=== PATIENT | female | born 1965 | race Caucasian/White ===

== ENCOUNTER → 2017-05-19 | Outpatient (CLI) | payer OTHER ==
[2017-05-19 09:16] LABS: Basophils % (A) 1 %; Eosinophils # (A) 0.1 k/uL (0-0.7); Eosinophils % (A) 2 %; HCT 40.4 % (34.0-46.0); HGB 13.5 gm/dL (11.4-16.0); Lymphocytes # (A) 2.8 k/uL (1.0-4.8); Lymphocytes % (A) 49 %; MCH 30.6 pg (25.0-35.0); MCHC 33.5 g/dL (31.0-37.0); MCV 91.4 fL (80.0-100.0); Mean Platelet Volume 7.9; Monocytes # (A) 0.3 k/uL (0-1.0); Monocytes % (A) 5 %; Neutrophils # (A) 2.3 k/uL (1.3-7.7); Neutrophils % (A) 41 %; Platelet Count 218 k/uL (150-450); RBC 4.42 m/uL (3.80-5.40); WBC 5.7 k/uL (3.8-10.6)
[2017-05-19 10:21] LABS: Appearance,Urine Turbid (Clear); Bacteria,Urine Many /hpf; Bilirubin,Urine Negative (Negative); Blood,Urine Small (Negative); Color,Urine Yellow; Glucose,Urine (UA) Negative (Negative); Hyaline Casts,Urine 88 /lpf (0-2); Ketones,Urine Negative (Negative); Leukocyte Esterase,Urine Large (Negative); Mucus,Urine Occasional /hpf; Nitrite,Urine Positive (Negative); PH, Urine 5.5 (5.0-8.0); Protein,Urine 1+ (Negative); RBC,Urine 24 /hpf (0-5); Specific Gravity,Urine 1.017 (1.001-1.035); Squamous Epithelial Cell,Urine 23 /hpf (0-4); Urobilinogen,Urine <2.0 mg/dL (<2.0); WBC,Urine >182 /hpf (0-5)
[2017-05-19 10:47] LABS: ALT 17 U/L (9-52); AST 18 U/L (14-36); Albumin 4.6 g/dL (3.5-5.0); Alkaline Phosphatase 66 U/L (38-126); Anion Gap 12 mmol/L; Blood Urea Nitrogen 21 mg/dL (7-17); C Reactive Protein <5.0 mg/L (<10.0); Calcium 10.5 mg/dL (8.4-10.2); Carbon Dioxide 27 mmol/L (22-30); Chloride 100 mmol/L (98-107); Creatine Kinase 55 U/L (30-135); Glucose 87 mg/dL (74-99); LDH 431 U/L (313-618); Phosphorus 4.3 mg/dL (2.5-4.5); Potassium 4.4 mmol/L (3.5-5.1); Sodium 139 mmol/L (137-145); Total Bilirubin 0.6 mg/dL (0.2-1.3); Total Protein 7.9 g/dL (6.3-8.2); Uric Acid 5.2 mg/dL (3.7-7.4)
[2017-05-19 11:54] LABS: Erythrocyte Sedimentation Rate 8 mm/hr (0-20)
[2017-05-19 15:11] LABS: Protein, Total 7.2 g/dL (6.2-8.2); Rheumatoid Factor 6 IU/mL (0-15); Streptolysin O Ab(ASO) 190 IU/mL (0-200)
[2017-05-19 15:25] LABS: Vitamin D 25 Hydroxy 62.3 ng/mL (30.0-100.0)
[2017-05-19 15:29] LABS: Parathyroid Hormone Intact 69.1 pg/mL (14.0-72.0)
[2017-05-19 16:54] LABS: Cyclic Citrullinated Pep IgG NEGATIVE (NEGATIVE)
[2017-05-19 17:25] LABS: Hemoglobin A1C 3.8 % (4.0-6.0)
[2017-05-20 04:50] LABS: Angiotensin-1 Converting Enz. 31 U/L (8-52)
[2017-05-20 09:44] LABS: ANA Pattern See Footnote
[2017-05-20 10:02] LABS: Vitamin D, 1, 25-Dihydroxy 71 pg/mL (20 - 79)
[2017-05-20 12:38] LABS: HLA B27 NEGATIVE
[2017-05-20 17:46] LABS: Hepatits C Virus RNA Not detected (Not detected); Hepatits C Virus RNA, Quant <12 IU/mL (<12); LOG HCV IU/mL <1.08 (<1.08)
[2017-05-21 05:23] LABS: Vitamin B1 41 ug/L (38-122)
[2017-05-21 09:18] LABS: Lyme IgG/IgM 0.1 Index
[2017-05-21 11:25] LABS: Vitamin B6 14 ug/L (5-50)
[2017-05-21 11:49] LABS: Albumin 4.64 g/dL (3.80-4.90); Gamma Globulin 0.97 g/dL (0.70-1.50)
== END | disposition home or self-care (01) ==
LOC: LABWHC1 08:08
PROVIDERS: ATTEND Physical Medicine & Rehabilitation
DX: M50.322 Other cervical disc degeneration at C5-C6 level (principal); M54.5 Low back pain
CPT/HCPCS: 36415; 80053; 81001; 82164; 82306; 82310; 82550; 82553; 82607; 82652; 83036; 83516; 83520; 83615; 83970; 84100; 84165; 84207; 84425; 84439; 84443; 84550; 85025; 85652; 86038; 86039; 86060; 86140; 86200; 86235; 86431; 86618; 86812; 87522

== ENCOUNTER → 2018-03-15 | Outpatient (CLI) | payer OTHER ==
--- NOTE | 2018-03-15 09:34 | US ---
EXAMINATION TYPE: US thyroid st tissue head/neck DATE OF EXAM: 03/15/2018 COMPARISON: NONE CLINICAL HISTORY: R22.1 Localized Swelling, Mass Neck. Patient has bilateral masses supraclavicular. At patients left palpable is a 2.8 x 0.8 x 1.4cm mass. Probable lipoma. At patients right palpable is a 1.9 x 0.5 x 1.4cm mass. Probable lipoma. IMPRESSION: 1. Palpable abnormalities appear to correspond to lipomatous ultrasound findings. MRI could be perfor med if additional evaluation would be of benefit.
[2018-03-15 10:03] LABS: Basophils % (A) 1 %; Eosinophils # (A) 0.1 k/uL (0-0.7); Eosinophils % (A) 2 %; HCT 37.9 % (34.0-46.0); HGB 12.9 gm/dL (11.4-16.0); Lymphocytes # (A) 1.8 k/uL (1.0-4.8); Lymphocytes % (A) 41 %; MCH 30.6 pg (25.0-35.0); MCHC 34.2 g/dL (31.0-37.0); MCV 89.7 fL (80.0-100.0); Monocytes # (A) 0.2 k/uL (0-1.0); Monocytes % (A) 5 %; Neutrophils # (A) 2.2 k/uL (1.3-7.7); Neutrophils % (A) 49 %; Platelet Count 182 k/uL (150-450); RBC 4.22 m/uL (3.80-5.40); RDW 13.1 % (11.5-15.5); WBC 4.4 k/uL (3.8-10.6)
[2018-03-15 11:04] LABS: ALT 32 U/L (9-52); AST 22 U/L (14-36); Albumin 4.2 g/dL (3.5-5.0); Alkaline Phosphatase 74 U/L (38-126); Anion Gap 8 mmol/L; Blood Urea Nitrogen 18 mg/dL (7-17); Carbon Dioxide 26 mmol/L (22-30); Chloride 108 mmol/L (98-107); Glucose 97 mg/dL (74-99); Potassium 5.4 mmol/L (3.5-5.1); Sodium 142 mmol/L (137-145); Total Bilirubin 0.4 mg/dL (0.2-1.3); Total Protein 7.4 g/dL (6.3-8.2)
== END | disposition home or self-care (01) ==
LOC: RADUSWWP 08:29
PROVIDERS: ATTEND Family Medicine
DX: R22.1 Localized swelling, mass and lump, neck (principal)
CPT/HCPCS: 36415; 76536; 80053; 85025

== ENCOUNTER 2018-03-18 14:27 | Inpatient (IN) | payer OTHER ==
[2018-03-18] MEDS ORDERED: SODIUM CHLORIDE 0.9% 1,000 ML IV STA (15:17)
--- NOTE | 2018-03-18 15:51 | XR ---
EXAMINATION TYPE: XR chest 2V DATE OF EXAM: 03/18/2018 COMPARISON: NONE HISTORY: Chest pain TECHNIQUE: Frontal and lateral views of the chest are obtained. FINDINGS: There is no focal air space opacity. No evidence for pneumothorax. No pleural effusion. The cardiac silhouette size is within normal limits. The osseous structures are grossly intact. IMPRESSION: 1. No acute cardiopulmonary process.
[2018-03-18 15:57] LABS: Basophils % (A) 0 %; Eosinophils # (A) 0.1 k/uL (0-0.7); Eosinophils % (A) 2 %; HCT 35.7 % (34.0-46.0); HGB 12.5 gm/dL (11.4-16.0); Lymphocytes # (A) 1.2 k/uL (1.0-4.8); Lymphocytes % (A) 17 %; MCH 30.9 pg (25.0-35.0); MCHC 34.9 g/dL (31.0-37.0); MCV 88.4 fL (80.0-100.0); Mean Platelet Volume 7.9; Monocytes # (A) 0.3 k/uL (0-1.0); Monocytes % (A) 5 %; Neutrophils # (A) 5.1 k/uL (1.3-7.7); Neutrophils % (A) 74 %; Platelet Count 185 k/uL (150-450); RBC 4.04 m/uL (3.80-5.40); RDW 13.2 % (11.5-15.5); WBC 6.9 k/uL (3.8-10.6)
[2018-03-18 16:07] LABS: ALT 31 U/L (9-52); AST 23 U/L (14-36); Albumin 4.1 g/dL (3.5-5.0); Alkaline Phosphatase 64 U/L (38-126); Anion Gap 8 mmol/L; Blood Urea Nitrogen 18 mg/dL (7-17); Calcium 9.9 mg/dL (8.4-10.2); Carbon Dioxide 24 mmol/L (22-30); Chloride 108 mmol/L (98-107); Glucose 97 mg/dL (74-99); Magnesium 1.9 mg/dL (1.6-2.3); Potassium 3.9 mmol/L (3.5-5.1); Sodium 140 mmol/L (137-145); Total Bilirubin 0.5 mg/dL (0.2-1.3); Total Protein 7.1 g/dL (6.3-8.2)
[2018-03-18 16:11] LABS: Creatine Kinase 49 U/L (30-135)
[2018-03-18 16:14] LABS: D-Dimer 0.27 mg/L FEU (<0.60); INR 1.3 (<1.2); Partial Thromboplastin Time 29.3 sec (22.0-30.0); Prothrombin Time 12.5 sec (9.0-12.0)
[2018-03-18 16:24] LABS: Creatine Kinase MB <0.2 ng/mL (0.0-2.4); Troponin I <0.012 ng/mL (0.000-0.034)
[2018-03-18 16:27] LABS: Amorphous Sediment,Urine Moderate /hpf; Appearance,Urine Turbid (Clear); Bacteria,Urine Occasional /hpf; Bilirubin,Urine Negative (Negative); Blood,Urine Negative (Negative); Color,Urine Yellow; Glucose,Urine (UA) Negative (Negative); Ketones,Urine Negative (Negative); Leukocyte Esterase,Urine Large (Negative); Mucus,Urine Rare /hpf; Nitrite,Urine Positive (Negative); PH, Urine 7.5 (5.0-8.0); Protein,Urine Negative (Negative); Specific Gravity,Urine 1.016 (1.001-1.035); Squamous Epithelial Cell,Urine 4 /hpf (0-4); WBC,Urine 30 /hpf (0-5)
--- NOTE | 2018-03-18 16:51 | ED ---
General Adult HPI - General Chief complaint: Recheck/Abnormal Lab/Rx Stated complaint: Abnormal labs Time Seen by Provider: 03/18/18 15:07 Source: patient, RN notes reviewed, old records reviewed Mode of arrival: ambulatory Limitations: no limitations - History of Present Illness Initial comments: Patient's age 3-year-old female who presents emergency department for general malaise and fatigue. Patient reports that she had some outpatient lab studies done as well as an ultrasound of her thyroid when she fell she had a normal lymph nodes in her neck. Patient reports that they called her today due to elevated potassium level. Patient states she's been feeling she's had some increased palpitations. Patient does have a heart history of palpitations. She is on metoprolol. Patient states she does not see a model maker apprentice at this time her primary care has been managing this. Patient reports that she has been around her son who is also had pneumonia. She complains of occasional cough and fatigue and runny nose. Patient also complains of some lower abdominal pain and discomfort, painful urination. - Related Data Home Medications Medication Instructions Recorded Confirmed ALPRAZolam [Xanax] 0.5 mg PO DAILY 03/18/18 03/18/18 Cyanocobalamin [Vitamin B-12 1,000 mcg SQ QMONTH 03/18/18 03/18/18 Injection] DULoxetine HCL [Cymbalta] 30 mg PO BID 03/18/18 03/18/18 Ergocalciferol (Vitamin D2) 50,000 unit PO FR 03/18/18 03/18/18 [Drisdol] Fluocinonide 0.05% [Lidex 0.05% 15 applic TOPICAL DAILY 03/18/18 03/18/18 cream] Ibuprofen [Motrin] 600 mg PO TID 03/18/18 03/18/18 Lidocaine 5% Patch [Lidoderm] 1 patch TOPICAL Q12HR PRN 03/18/18 03/18/18 Metoprolol Tartrate 12.5 mg PO BID 03/18/18 03/18/18 Allergies Allergy/AdvReac Type Severity Reaction Status Date / Time fluoxetine Allergy Swelling Verified 03/18/18 15:42 pregabalin [From Lyrica] Allergy Swelling Verified 03/18/18 15:42 Review of Systems ROS Statement: Those systems with pertinent positive or pertinent negative responses have been documented in the HPI. ROS Other: All systems not noted in ROS Statement are negative. Past Medical History Additional Past Medical History / Comment(s): arrythymia, ear sensitivity, DDD neck and back History of Any Multi-Drug Resistant Organisms: None Reported Past Surgical History: Breast Surgery, Section Additional Past Surgical History / Comment(s): open myomectomy, cosmetic surgery , breast reduction Past Psychological History: PTSD Smoking Status: Former smoker Past Alcohol Use History: None Reported Past Drug Use History: None Reported General Exam - General Exam Comments Initial Comments: 33-year-old female. Alert and oriented. Patient appears in no acute distress. Limitations: no limitations General appearance: alert, in no apparent distress Head exam: Present: atraumatic, normocephalic, normal inspection Eye exam: Present: normal appearance, PERRL, EOMI. Absent: scleral icterus, conjunctival injection, periorbital swelling ENT exam: Present: normal exam, mucous membranes moist Neck exam: Present: normal inspection. Absent: tenderness, meningismus, lymphadenopathy Respiratory exam: Present: normal lung sounds bilaterally. Absent: respiratory distress, wheezes, rales, rhonchi, stridor Cardiovascular Exam: Present: regular rate, normal rhythm, normal heart sounds. Absent: systolic murmur, diastolic murmur, rubs, gallop, clicks GI/Abdominal exam: Present: soft, normal bowel sounds. Absent: distended, tenderness, guarding, rebound, rigid Extremities exam: Present: normal inspection, full ROM, normal capillary refill. Absent: tenderness, pedal edema, joint swelling, calf tenderness Back exam: Present: normal inspection Neurological exam: Present: alert, oriented X3, CN II-XII intact Psychiatric exam: Present: normal affect, normal mood Skin exam: Present: warm, dry, intact, normal color. Absent: rash Course Vital Signs 03/18/18 14:39 Temperature 98.1 F Pulse Rate 98 Respiratory 18 Rate Blood Pressure 158/81 O2 Sat by Pulse 98 Oximetry EKG Findings - EKG Comments: EKG Findings:: EKG shows sinus rhythm with frequent PVCs and pattern of bigeminy. Prolonged QT. Dr. Goodman shannon 7 bpm. Paranasal is 134 ms. QRS ration 76 most seconds. QT QTc is 370/469 ms. Medical Decision Making - Medical Decision Making Patient is a 53-year-old female presents emergency department today with concerns for elevated potassium level from outpatient lab work. Since and general malaise and fatigue. She also reports she's been having increased palpitations. Patient reports she's had a history of palpitations. Her EKG shows significant frequent PVCs with pattern of bigeminy. She has no cardiac murmurs. She also complains of lower abdominal pain and cramping. She does have a positive UTI. Patient's blood work was otherwise unremarkable. Urine culture will be obtained. Started on Rocephin. At this time Patient case discussed with Dr. Cervantes. We have no previous EKGs to confirm this pattern of bigeminy. With concern the Patient increased palpitations like to get the Patient for further evaluation and observation. - Lab Data Result diagrams: 03/18/18 15:33 03/18/18 15:33 Lab Results 03/18/18 03/18/18 03/18/18 Range/Units 15:33 15:33 15:33 WBC 6.9 (3.8-10.6) k/uL RBC 4.04 (3.80-5.40) m/uL Hgb 12.5 (11.4-16.0) gm/dL Hct 35.7 (34.0-46.0) % MCV 88.4 (80.0-100.0) fL MCH 30.9 (25.0-35.0) pg MCHC 34.9 (31.0-37.0) g/dL RDW 13.2 (11.5-15.5) % Plt Count 185 (150-450) k/uL Neutrophils % 74 % Lymphocytes % 17 % Monocytes % 5 % Eosinophils % 2 % Basophils % 0 % Neutrophils # 5.1 (1.3-7.7) k/uL Lymphocytes # 1.2 (1.0-4.8) k/uL Monocytes # 0.3 (0-1.0) k/uL Eosinophils # 0.1 (0-0.7) k/uL Basophils # 0.0 (0-0.2) k/uL PT (9.0-12.0) sec INR (<1.2) APTT (22.0-30.0) sec D-Dimer (<0.60) mg/L FEU Sodium 140 (137-145) mmol/L Potassium 3.9 (3.5-5.1) mmol/L Chloride 108 H (98-107) mmol/L Carbon Dioxide 24 (22-30) mmol/L Anion Gap 8 mmol/L BUN 18 H (7-17) mg/dL Creatinine 0.77 (0.52-1.04) mg/dL Est GFR (CKD-EPI)AfAm >90 (>60 ml/min/1.73 sqM) Est GFR (CKD-EPI)NonAf 88 (>60 ml/min/1.73 sqM) Glucose 97 (74-99) mg/dL Calcium 9.9 (8.4-10.2) mg/dL Magnesium 1.9 (1.6-2.3) mg/dL Total Bilirubin 0.5 (0.2-1.3) mg/dL AST 23 (14-36) U/L ALT 31 (9-52) U/L Alkaline Phosphatase 64 (38-126) U/L Total Creatine Kinase 49 (30-135) U/L CK-MB (CK-2) <0.2 (0.0-2.4) ng/mL CK-MB (CK-2) Rel Index Troponin I <0.012 (0.000-0.034) ng/mL NT-Pro-B Natriuret Pep pg/mL Total Protein 7.1 (6.3-8.2) g/dL Albumin 4.1 (3.5-5.0) g/dL Urine Color Urine Appearance (Clear) Urine pH (5.0-8.0) Ur Specific [place] (1.001-1.035) Urine Protein (Negative) Urine Glucose (UA) (Negative) Urine Ketones (Negative) Urine Blood (Negative) Urine Nitrite (Negative) Urine Bilirubin (Negative) Urine Urobilinogen (<2.0) mg/dL Ur Leukocyte Esterase (Negative) Urine WBC (0-5) /hpf Ur Squamous Epith Cells (0-4) /hpf Amorphous Sediment (None) /hpf Urine Bacteria (None) /hpf Urine Mucus (None) /hpf 03/18/18 03/18/18 03/18/18 Range/Units 15:33 15:33 16:00 WBC (3.8-10.6) k/uL RBC (3.80-5.40) m/uL Hgb (11.4-16.0) gm/dL Hct (34.0-46.0) % MCV (80.0-100.0) fL MCH (25.0-35.0) pg MCHC (31.0-37.0) g/dL RDW (11.5-15.5) % Plt Count (150-450) k/uL Neutrophils % % Lymphocytes % % Monocytes % % Eosinophils % % Basophils % % Neutrophils # (1.3-7.7) k/uL Lymphocytes # (1.0-4.8) k/uL Monocytes # (0-1.0) k/uL Eosinophils # (0-0.7) k/uL Basophils # (0-0.2) k/uL PT 12.5 H (9.0-12.0) sec INR 1.3 H (<1.2) APTT 29.3 (22.0-30.0) sec D-Dimer 0.27 (<0.60) mg/L FEU Sodium (137-145) mmol/L Potassium (3.5-5.1) mmol/L Chloride (98-107) mmol/L Carbon Dioxide (22-30) mmol/L Anion Gap mmol/L BUN (7-17) mg/dL Creatinine (0.52-1.04) mg/dL Est GFR (CKD-EPI)AfAm (>60 ml/min/1.73 sqM) Est GFR (CKD-EPI)NonAf (>60 ml/min/1.73 sqM) Glucose (74-99) mg/dL Calcium (8.4-10.2) mg/dL Magnesium (1.6-2.3) mg/dL Total Bilirubin (0.2-1.3) mg/dL AST (14-36) U/L ALT (9-52) U/L Alkaline Phosphatase (38-126) U/L Total Creatine Kinase (30-135) U/L CK-MB (CK-2) (0.0-2.4) ng/mL CK-MB (CK-2) Rel Index Troponin I (0.000-0.034) ng/mL NT-Pro-B Natriuret Pep 176 pg/mL Total Protein (6.3-8.2) g/dL Albumin (3.5-5.0) g/dL Urine Color Yellow Urine Appearance Turbid H (Clear) Urine pH 7.5 (5.0-8.0) Ur Specific [place] 1.016 (1.001-1.035) Urine Protein Negative (Negative) Urine Glucose (UA) Negative (Negative) Urine Ketones Negative (Negative) Urine Blood Negative (Negative) Urine Nitrite Positive H (Negative) Urine Bilirubin Negative (Negative) Urine Urobilinogen 2.0 (<2.0) mg/dL Ur Leukocyte Esterase Large H (Negative) Urine WBC 30 H (0-5) /hpf Ur Squamous Epith Cells 4 (0-4) /hpf Amorphous Sediment Moderate H (None) /hpf Urine Bacteria Occasional H (None) /hpf Urine Mucus Rare H (None) /hpf - Radiology Data Radiology results: report reviewed Chest x-rays negative for any acute cardiothoracic process. Disposition Clinical Impression: Bigeminal rhythm, Malaise, Dizziness, UTI (urinary tract infection) Disposition: ADMITTED IP TO THIS HOSP Condition: Stable Is patient prescribed a controlled substance at d/c from ED?: No Referrals: [facility] [Primary Care Provider] - 1-2 days Time of Disposition: 17:12
[2018-03-18] MEDS ORDERED: NALOXONE 0.4 MG/ML 1 ML VIAL IV PRN (17:13)
[2018-03-18] MEDS ORDERED: MORPHINE SULFATE 4 MG/ML SYRINGE IV PRN (17:13)
[2018-03-18] MEDS ORDERED: ACETAMINOPHEN TAB 325 MG TAB PO PRN (17:13)
[2018-03-18] MEDS ORDERED: ONDANSETRON 4 MG/2 ML VIAL IVP PRN (17:13)
[2018-03-18] MEDS ORDERED: IBUPROFEN 400 MG TAB PO PRN (17:13)
[2018-03-18] MEDS ORDERED: LIDOCAINE 5% PATCH TOPICAL PRN (17:15)
[2018-03-18] MEDS ORDERED: ENALAPRILAT 1.25 MG/ML 1 ML VIAL IVP PRN (20:15)
[2018-03-18] MEDS: SODIUM CHLORIDE 0.9% 1,000 ML IV SCH (21:57)
[2018-03-18] MEDS: IBUPROFEN 600 MG TAB PO SCH (22:01)
[2018-03-18] MEDS ORDERED: ALPRAZolam 0.5 MG TAB PO SCH (22:01)
[2018-03-18] MEDS: METOPROLOL TARTRATE 12.5 MG TAB PO SCH (22:09)
[2018-03-18] MEDS: KETOROLAC 30 MG/ML 1 ML VIAL IVP PRN (22:18)
[2018-03-18] MEDS: DULoxetine HCL 30 MG CAPSULE.DR PO SCH (22:18)
[2018-03-19] MEDS: SODIUM CHLORIDE 0.9% 1,000 ML IV SCH (06:01)
[2018-03-19 06:09] VITALS: PULSE 82
[2018-03-19 06:40] LABS: Basophils % (A) 0 %; Eosinophils # (A) 0.1 k/uL (0-0.7); Eosinophils % (A) 3 %; HCT 32.9 % (34.0-46.0); HGB 11.6 gm/dL (11.4-16.0); Lymphocytes # (A) 1.4 k/uL (1.0-4.8); Lymphocytes % (A) 34 %; MCH 31.2 pg (25.0-35.0); MCHC 35.2 g/dL (31.0-37.0); MCV 88.8 fL (80.0-100.0); Mean Platelet Volume 7.7; Monocytes # (A) 0.2 k/uL (0-1.0); Monocytes % (A) 5 %; Neutrophils # (A) 2.4 k/uL (1.3-7.7); Neutrophils % (A) 56 %; Platelet Count 177 k/uL (150-450); RBC 3.71 m/uL (3.80-5.40); RDW 13.1 % (11.5-15.5); WBC 4.2 k/uL (3.8-10.6)
[2018-03-19 07:06] LABS: Anion Gap 6 mmol/L; Blood Urea Nitrogen 14 mg/dL (7-17); Calcium 9.5 mg/dL (8.4-10.2); Carbon Dioxide 24 mmol/L (22-30); Chloride 111 mmol/L (98-107); Glucose 95 mg/dL (74-99); Magnesium 1.9 mg/dL (1.6-2.3); Sodium 141 mmol/L (137-145)
[2018-03-19] MEDS ORDERED: PANTOPRAZOLE 40 MG/10 ML VIAL IV SCH (09:00)
[2018-03-19] MEDS ORDERED: BETAMETHASONE DIPROPIONATE 0.05% CREAM 15 GM TUBE TOPICAL SCH (09:00)
[2018-03-19] MEDS ORDERED: ALPRAZolam 0.5 MG TAB PO SCH ×2 (09:00→21:00)
[2018-03-19] MEDS: IBUPROFEN 600 MG TAB PO SCH ×2 (09:09→12:19)
[2018-03-19] MEDS: METOPROLOL TARTRATE 12.5 MG TAB PO SCH (09:09)
[2018-03-19] MEDS: DULoxetine HCL 30 MG CAPSULE.DR PO SCH ×2 (09:10→13:23)
--- NOTE | 2018-03-19 11:34 | P.CRDCN ---
History of Present Illness History of present illness: This pleasant 53-year-old female past medical history significant for frequent PVCs, dyslipidemia and former nicotine dependence. She also suffers from PTSD, depression and anxiety. She denies history of coronary artery disease, hypertension or diabetes mellitus. She does not follow with a utilization specialist on a regular basis. We've been asked to see her in consultation secondary bigeminy noted on EKG. She states she recently noticed swelling on both sides of her neck in the anterior region. She saw her primary care physician and was sent in for a ultrasound of her neck which she reported to be normal. She also had blood work drawn at that time. She was called by her primary care physician told her that her potassium was elevated and she should present to the hospital immediately for evaluation. Upon arrival an EKG was obtained which revealed sinus mechanism with frequent PVCs bigeminal pattern. No acute ST-T wave abnormalities noted. She states upon arrival to the emergency department she was feeling tightness in her chest as well as difficulty taking in a deep breath and mild dizziness. She denies symptoms of palpitations, nausea, vomiting or diaphoresis. At the time of my exam she is seen resting comfortably in bed in no acute distress. Chest x-ray is negative for acute cardiopulmonary process. Laboratory data reviewed, WBC 4.2, hemoglobin 11.6, platelets 177, d-dimer 0.27, sodium 141, potassium 4.0, magnesium 1.9, creatinine 0.7, cardiac enzymes negative 1, NT proBNP 176, TSH 0.606. Current cardiac medications include Lopressor 12.5 mg twice a day. At the time of my exam: CONSTITUTIONAL: Denies fever. Denies chills. EYES: Denies blurred vision. Denies vision changes. Denies eye pain. EARS, NOSE, MOUTH & THROAT: Denies headache. Denies sore throat. Denies ear pain. CARDIOVASCULAR: Denies chest pain. Denies shortness of breath. Denies orthopnea. Denies PND. Denies palpitations. RESPIRATORY: Denies cough. GASTROINTESTINAL: Denies abdominal pain. Denies diarrhea. Denies constipation. Denies nausea. Denies vomiting. MUSCULOSKELETAL: Denies myalgias. INTEGUMENTARY: Denies pruitis. Denies rash. NEUROLOGIC: Denies numbness. Denies tingling. Denies weakness. PSYCHIATRIC: Denies anxiety. Denies depression. ENDOCRINE: Denies fatigue. Denies weight change. Denies polydipsia. Denies polyurina. GENITOURINARY: Denies burning, hematuria or urgency with micturation. HEMATOLOGIC: Denies history of anemia. Denies bleeding. Blood pressure 122/71 heart rate 82 afebrile maintaining oxygen saturation on room air. GENERAL: This is a 53-year-old female in no apparent distress at the time of my examination. HEENT: Head is atraumatic, normocephalic. Pupils are equal, round. Sclerae anicteric. Conjunctivae are clear. Mucous membranes of the mouth are moist. Neck is supple. There is no jugular venous distention. No carotid bruit is heard. LUNGS: Clear to auscultation no wheezes, rales or rhonchi. No chest wall tenderness is noted on palpation or with deep breathing. HEART: Regular rate and rhythm without murmurs, rubs or gallops. S1 and S2 heard. ABDOMEN: Soft, nontender. Bowel sounds are heard. No organomegaly noted. EXTREMITIES: No evidence of peripheral edema and no calf tenderness noted. VASCULAR: Radial and dorsalis pedis pulses palpated, no evidence of clubbing. NEUROLOGIC: Patient is awake, alert and oriented x3. ASSESSMENT Frequent PVCs Chest pain, atypical. Dyslipidemia Former nicotine dependence PLAN Obtain second troponin to rule out an acute coronary event. TSH has been checked and is normal. Obtain 2-D echocardiogram and Doppler study to assess cardiac structure and function. Increase Lopressor 25 mg twice a day. Telemetry tracings have been reviewed. If an acute event is ruled out she is stable from a cardiac perspective and should be able to be discharged home. Thank you kindly for this consultation. Nurse Practitioner note has been reviewed, I agree with a documented findings and plan of care. Patient was seen and examined. Past Medical History Past Medical History: Hyperlipidemia Additional Past Medical History / Comment(s): Arrythymia, Ear sensitivity, DDD neck and back, Vertigo History of Any Multi-Drug Resistant Organisms: None Reported Past Surgical History: Breast Surgery, Section Additional Past Surgical History / Comment(s): open myomectomy, cosmetic surgery , breast reduction Past Anesthesia/Blood Transfusion Reactions: No Reported Reaction Past Psychological History: Anxiety, Depression, PTSD Smoking Status: Former smoker Past Alcohol Use History: Daily Additional Past Alcohol Use History / Comment(s): 2 glasses of wine a night Past Drug Use History: None Reported Medications and Allergies Home Medications Medication Instructions Recorded Confirmed Type ALPRAZolam [Xanax] 0.5 mg PO DAILY 03/18/18 03/18/18 History Cyanocobalamin [Vitamin B-12 1,000 mcg SQ QMONTH 03/18/18 03/18/18 History Injection] DULoxetine HCL [Cymbalta] 30 mg PO BID 03/18/18 03/18/18 History Ergocalciferol (Vitamin D2) 50,000 unit PO FR 03/18/18 03/18/18 History [Drisdol] Fluocinonide 0.05% [Lidex 0.05% 15 applic TOPICAL DAILY 03/18/18 03/18/18 History cream] Ibuprofen [Motrin] 600 mg PO TID 03/18/18 03/18/18 History Lidocaine 5% Patch [Lidoderm] 1 patch TOPICAL Q12HR PRN 03/18/18 03/18/18 History Metoprolol Tartrate 12.5 mg PO BID 03/18/18 03/18/18 History Allergies Allergy/AdvReac Type Severity Reaction Status Date / Time fluoxetine Allergy Swelling Verified 03/18/18 15:42 pregabalin [From Lyrica] Allergy Swelling Verified 03/18/18 15:42 Physical Exam Vitals: Vital Signs Temp Pulse Pulse Resp BP BP Pulse Ox 03/19/18 04:00 98.2 F 82 17 106/64 95 03/18/18 23:22 86 17 03/18/18 23:16 98.0 F 86 17 122/88 97 03/18/18 21:40 98.1 F 82 18 159/95 97 03/18/18 21:00 96 25 H 144/90 97 03/18/18 20:30 103 H 26 H 136/94 97 03/18/18 20:00 105 H 16 99 03/18/18 19:30 95 24 142/98 98 03/18/18 19:00 94 25 H 147/97 98 03/18/18 18:30 87 19 155/113 99 03/18/18 18:00 92 23 157/102 97 03/18/18 17:30 163/104 03/18/18 17:00 163/104 03/18/18 16:30 163/104 03/18/18 16:00 163/104 03/18/18 15:35 98 03/18/18 14:39 98.1 F 98 18 158/81 98 Intake and Output 03/18/18 03/19/18 03/19/18 22:59 06:59 14:59 Intake Total 1000 Balance 1000 Intake: Intake, IV Titration 600 Amount Sodium Chloride 0.9% 1, 600 000 ml @ 100 mls/hr IV . Q10H [facility] Rx#:[id number] Oral 400 Other: Voiding Method Toilet # Voids 1 Weight 80.1 kg Results 03/19/18 06:13 03/19/18 06:13 Cardiac Enzymes 03/18/18 03/18/18 Range/Units 15:33 15:33 AST 23 (14-36) U/L CK-MB (CK-2) <0.2 (0.0-2.4) ng/mL Troponin I <0.012 (0.000-0.034) ng/mL Coagulation 03/18/18 Range/Units 15:33 PT 12.5 H (9.0-12.0) sec APTT 29.3 (22.0-30.0) sec CBC 03/18/18 03/19/18 Range/Units 15:33 06:13 WBC 6.9 4.2 (3.8-10.6) k/uL RBC 4.04 3.71 L (3.80-5.40) m/uL Hgb 12.5 11.6 (11.4-16.0) gm/dL Hct 35.7 32.9 L (34.0-46.0) % Plt Count 185 177 (150-450) k/uL Comprehensive Metabolic Panel 03/18/18 03/19/18 Range/Units 15:33 06:13 Sodium 140 141 (137-145) mmol/L Potassium 3.9 4.0 (3.5-5.1) mmol/L Chloride 108 H 111 H (98-107) mmol/L Carbon Dioxide 24 24 (22-30) mmol/L BUN 18 H 14 (7-17) mg/dL Creatinine 0.77 0.70 (0.52-1.04) mg/dL Glucose 97 95 (74-99) mg/dL Calcium 9.9 9.5 (8.4-10.2) mg/dL AST 23 (14-36) U/L ALT 31 (9-52) U/L Alkaline Phosphatase 64 (38-126) U/L Total Protein 7.1 (6.3-8.2) g/dL Albumin 4.1 (3.5-5.0) g/dL Current Medications Generic Name Dose Route Start Last Admin Trade Name Freq PRN Reason Stop Dose Admin Acetaminophen 650 mg 03/18/18 17:13 Tylenol Tab PO Q6HR PRN Mild Pain or Fever > 100.5 Alprazolam 0.5 mg 03/19/18 21:00 Xanax PO HS [facility] Betamethasone Dipropionate 15 applic 03/19/18 09:00 Diprolene Af TOPICAL DAILY [facility] Cyanocobalamin 1,000 mcg 04/16/18 12:00 Vitamin B-12 SQ QMONTH [facility] Duloxetine HCl 30 mg 03/18/18 21:00 03/18/18 22:18 Cymbalta PO 30 mg BID [facility] Administration Enalaprilat 1.25 mg 03/18/18 20:15 Vasotec IVP Q6HR PRN Blood Pressure - High Ergocalciferol 50,000 unit 03/25/18 12:00 Vitamin D2 PO FR [facility] Sodium Chloride 1,000 mls @ 100 mls/hr 03/18/18 17:15 03/19/18 06:01 Saline 0.9% IV 100 mls/hr .Q10H [facility] Administration Ibuprofen 600 mg 03/18/18 22:00 03/18/18 22:01 Motrin PO Not Given TID [facility] Ketorolac Tromethamine 30 mg 03/18/18 17:13 03/18/18 22:18 Toradol IVP 03/23/18 17:14 30 mg Q6HR PRN Administration Moderate Pain Lidocaine 1 patch 03/18/18 17:15 Lidoderm TOPICAL Q12HR PRN Pain Metoprolol Tartrate 12.5 mg 03/18/18 21:00 03/18/18 22:09 Lopressor PO 12.5 mg BID [facility] Administration Morphine Sulfate 4 mg 03/18/18 17:13 Morphine Sulfate (Inj) IV Q4HR PRN Severe Pain Naloxone HCl 0.2 mg 03/18/18 17:13 Narcan IV Q2M PRN Opioid Reversal Ondansetron HCl 4 mg 03/18/18 17:13 Zofran IVP Q8HR PRN Nausea And Vomiting Pantoprazole Sodium 40 mg 03/19/18 09:00 Protonix IV DAILY [facility] Intake and Output 03/18/18 03/19/18 03/19/18 22:59 06:59 14:59 Intake Total 1000 Balance 1000 Intake: Intake, IV Titration 600 Amount Sodium Chloride 0.9% 1, 600 000 ml @ 100 mls/hr IV . Q10H [facility] Rx#:[id number] Oral 400 Other: Voiding Method Toilet # Voids 1 Weight 80.1 kg 03/19/18 06:13 03/19/18 06:13
[2018-03-19] MEDS: KETOROLAC 30 MG/ML 1 ML VIAL IVP PRN (12:22)
--- NOTE | 2018-03-19 13:44 | P.DS ---
Providers Date of admission: 03/18/18 17:28 Attending physician: Juan Samaniego Consults: 03/18/18 17:13 Consult Physician Stat Consulting Provider: Ale Yung Consult Reason/Comments: Bigeminy, Dizziness Do you want consulting provider notified?: Yes Primary care physician: [facility] Hospital Course: Please refer to my HPI Patient Condition at Discharge: Stable Plan - Discharge Summary Discharge Rx Participant: No New Discharge Prescriptions: New Ciprofloxacin HCl [Cipro] 500 mg PO Q12H 3 Days #6 tab Metoprolol Tartrate [Lopressor] 25 mg PO BID tab Continue Lidocaine 5% Patch [Lidoderm 5% Patch] 1 patch TOPICAL Q12HR PRN PRN Reason: Pain Fluocinonide 0.05% [Lidex 0.05% cream] 15 applic TOPICAL DAILY Ergocalciferol (Vitamin D2) [Drisdol] 50,000 unit PO FR DULoxetine HCL [Cymbalta] 30 mg PO BID Cyanocobalamin [Vitamin B-12 Injection] 1,000 mcg SQ QMONTH ALPRAZolam [Xanax] 0.5 mg PO DAILY Ibuprofen [Motrin] 600 mg PO TID Discontinued Metoprolol Tartrate 12.5 mg PO BID Discharge Medication List ALPRAZolam [Xanax] 0.5 mg PO DAILY 03/18/18 [History] Cyanocobalamin [Vitamin B-12 Injection] 1,000 mcg SQ QMONTH 03/18/18 [History] DULoxetine HCL [Cymbalta] 30 mg PO BID 03/18/18 [History] Ergocalciferol (Vitamin D2) [Drisdol] 50,000 unit PO FR 03/18/18 [History] Fluocinonide 0.05% [Lidex 0.05% cream] 15 applic TOPICAL DAILY 03/18/18 [History ] Ibuprofen [Motrin] 600 mg PO TID 03/18/18 [History] Lidocaine 5% Patch [Lidoderm 5% Patch] 1 patch TOPICAL Q12HR PRN 03/18/18 [ History] Ciprofloxacin HCl [Cipro] 500 mg PO Q12H 3 Days #6 tab 03/19/18 [Rx] Metoprolol Tartrate [Lopressor] 25 mg PO BID tab 03/19/18 [Rx] [facility] Discharge Disposition: HOME SELF-CARE
--- NOTE | 2018-03-19 13:44 | P.HPIM ---
History of Present Illness 53-year-old female was sent in from PCPs office because of hyperkalemia on the regular blood test that was done while getting an ultrasound of the neck to rule out any enlarged lymph nodes. I'll start of the neck was negative. Patient also has noncardiac musculoskeletal chest pain which resolved now, denied any UTI-like symptoms although urine is abnormal because of which patient was started on antibiotics. Subsequently admitted for chest pain patient EKG is essentially within normal limits except for PVCs patient doesn't have any hyperkalemia. Patient may have had mild hemolysis although hemolysis is not documented on the has that was done. Her potassium is stable at 4. Because of the chest pain patient was evaluated by cardiology ruled out acute coronary syndromes patient does have generalized body aches and flulike symptoms those improved now patient denied any objective fevers at home but had some chills. Patient is undergoing echocardiogram if that's negative patient will be discharged today patient denied any cough. Review of Systems REVIEW OF SYSTEMS: CONSTITUTIONAL: No fever, no malaise, no fatigue. HEENT: No recent visual problems or hearing problems. Denied any sore throat. CARDIOVASCULAR: No , orthopnea, PND, no palpitations, no syncope. PULMONARY: No shortness of breath, no cough, no hemoptysis. GASTROINTESTINAL: No diarrhea, no nausea, no vomiting, no abdominal pain. Normoactive bowel sounds. NEUROLOGICAL: No headaches, no weakness, no numbness. HEMATOLOGICAL: Denies any bleeding or petechiae. GENITOURINARY: Denies any burning micturition, frequency, or urgency. MUSCULOSKELETAL/RHEUMATOLOGICAL: Denies any joint pain, swelling, or any muscle pain. ENDOCRINE: Denies any polyuria or polydipsia. The rest of the 14-point review of systems is negative. Past Medical History Past Medical History: Hyperlipidemia Additional Past Medical History / Comment(s): Arrythymia, Ear sensitivity, DDD neck and back, Vertigo History of Any Multi-Drug Resistant Organisms: None Reported Past Surgical History: Breast Surgery, Section Additional Past Surgical History / Comment(s): open myomectomy, cosmetic surgery , breast reduction Past Anesthesia/Blood Transfusion Reactions: No Reported Reaction Past Psychological History: Anxiety, Depression, PTSD Smoking Status: Former smoker Past Alcohol Use History: Daily Additional Past Alcohol Use History / Comment(s): 2 glasses of wine a night Past Drug Use History: None Reported Medications and Allergies Home Medications Medication Instructions Recorded Confirmed Type ALPRAZolam [Xanax] 0.5 mg PO DAILY 03/18/18 03/18/18 History Cyanocobalamin [Vitamin B-12 1,000 mcg SQ QMONTH 03/18/18 03/18/18 History Injection] DULoxetine HCL [Cymbalta] 30 mg PO BID 03/18/18 03/18/18 History Ergocalciferol (Vitamin D2) 50,000 unit PO FR 03/18/18 03/18/18 History [Drisdol] Fluocinonide 0.05% [Lidex 0.05% 15 applic TOPICAL DAILY 03/18/18 03/18/18 History cream] Ibuprofen [Motrin] 600 mg PO TID 03/18/18 03/18/18 History Lidocaine 5% Patch [Lidoderm 5% 1 patch TOPICAL Q12HR PRN 03/18/18 03/18/18 History Patch] Ciprofloxacin HCl [Cipro] 500 mg PO Q12H 3 Days #6 tab 03/19/18 Rx Metoprolol Tartrate [Lopressor] 25 mg PO BID tab 03/19/18 Rx Allergies Allergy/AdvReac Type Severity Reaction Status Date / Time fluoxetine Allergy Swelling Verified 03/18/18 15:42 pregabalin [From Lyrica] Allergy Swelling Verified 03/18/18 15:42 Physical Exam Vitals: Vital Signs Temp Pulse Pulse Resp BP BP Pulse Ox 03/19/18 11:27 82 14 03/19/18 08:00 97.3 F L 82 14 122/71 98 03/19/18 04:00 98.2 F 82 17 106/64 95 03/18/18 23:22 86 17 03/18/18 23:16 98.0 F 86 17 122/88 97 03/18/18 21:40 98.1 F 82 18 159/95 97 03/18/18 21:00 96 25 H 144/90 97 03/18/18 20:30 103 H 26 H 136/94 97 03/18/18 20:00 105 H 16 99 03/18/18 19:30 95 24 142/98 98 03/18/18 19:00 94 25 H 147/97 98 03/18/18 18:30 87 19 155/113 99 03/18/18 18:00 92 23 157/102 97 03/18/18 17:30 163/104 03/18/18 17:00 163/104 03/18/18 16:30 163/104 03/18/18 16:00 163/104 03/18/18 15:35 98 03/18/18 14:39 98.1 F 98 18 158/81 98 Intake and Output 03/18/18 03/19/18 03/19/18 22:59 06:59 14:59 Intake Total 1000 Balance 1000 Intake: Intake, IV Titration 600 Amount Sodium Chloride 0.9% 1, 600 000 ml @ 100 mls/hr IV . Q10H PHOEBE Rx#:[id number] Oral 400 Other: Voiding Method Toilet Toilet # Voids 1 Weight 80.1 kg PHYSICAL EXAMINATION: GENERAL: The patient is alert and oriented x3, not in any acute distress. Well developed, well nourished. HEENT: Pupils are round and equally reacting to light. EOMI. No scleral icterus. No conjunctival pallor. Normocephalic, atraumatic. No pharyngeal erythema. No thyromegaly. CARDIOVASCULAR: S1 and S2 present. No murmurs, rubs, or gallops. PULMONARY: Chest is clear to auscultation, no wheezing or crackles. She does have reproducible chest pain ABDOMEN: Soft, nontender, nondistended, normoactive bowel sounds. No palpable organomegaly. MUSCULOSKELETAL: No joint swelling or deformity. EXTREMITIES: No cyanosis, clubbing, or pedal edema. NEUROLOGICAL: Gross neurological examination did not reveal any focal deficits. SKIN: No rashes. Results CBC & Chem 7: 03/19/18 06:13 03/19/18 06:13 Labs: Abnormal Lab Results - Last 24 Hours (Table) 03/18/18 03/18/18 03/18/18 Range/Units 15:33 15:33 16:00 RBC (3.80-5.40) m/uL Hct (34.0-46.0) % PT 12.5 H (9.0-12.0) sec INR 1.3 H (<1.2) Chloride 108 H (98-107) mmol/L BUN 18 H (7-17) mg/dL Urine Appearance Turbid H (Clear) Urine Nitrite Positive H (Negative) Ur Leukocyte Esterase Large H (Negative) Urine WBC 30 H (0-5) /hpf Amorphous Sediment Moderate H (None) /hpf Urine Bacteria Occasional H (None) /hpf Urine Mucus Rare H (None) /hpf 03/19/18 03/19/18 Range/Units 06:13 06:13 RBC 3.71 L (3.80-5.40) m/uL Hct 32.9 L (34.0-46.0) % PT (9.0-12.0) sec INR (<1.2) Chloride 111 H (98-107) mmol/L BUN (7-17) mg/dL Urine Appearance (Clear) Urine Nitrite (Negative) Ur Leukocyte Esterase (Negative) Urine WBC (0-5) /hpf Amorphous Sediment (None) /hpf Urine Bacteria (None) /hpf Urine Mucus (None) /hpf Microbiology - Last 24 Hours (Table) 03/18/18 16:00 Urine Culture - Preliminary Urine,Voided Thrombosis Risk Factor Assmnt - Choose All That Apply Each Factor Represents 1 point: Age 41-60 years, Obesity (BMI >25) Other Risk Factors: No Other congenital or acquired thrombophilia - If yes, enter type in comment: No Thrombosis Risk Factor Assessment Total Risk Factor Score: 2 Thrombosis Risk Factor Assessment Level: Low Risk Assessment and Plan Plan: -Chest pain rule out acute coronary Syndromes atypical chest pain most probably musculoskeletal. -Possibility of urinary tract infection cannot be completely ruled out will give 3 more days of ciprofloxacin empirically Hyperkalemia: Which is a lab error repeat tested did not reveal any more hyperkalemia -Dyslipidemia -Frequent PVCs for which we are increasing the dose of metoprolol
[2018-03-19 15:11] VITALS: BP 121/65; RESP 16; TEMP 97.9
--- NOTE | 2018-03-19 15:17 | ECHOF ---
Referral Reason:dizzy, palpitations MEASUREMENTS -------- HEIGHT: 165.1 cm WEIGHT: 79.8 kg BP: 106/64 IVSd: 1.0 cm (0.6 - 1.1) LVIDd: 4.4 cm (3.9 - 5.3) LVPWd: 1.0 cm (0.6 - 1.1) EDV(Teich): 88 ml IVSs: 1.5 cm LVIDs: 3.2 cm LVPWs: 1.3 cm %IVS Thck: 55 % ESV(Teich): 42 ml EF(Teich): 52 % %FS: 27 % SV(Teich): 46 ml LA Diam: 3.0 cm (2.7 - 3.8) RVIDd: 2.4 cm (< 3.3) IVC: 21.71 mm LALs A4C: 4.8 cm LAAs A4C: 16.2 cm LAESV A-L A4C: 46 ml LAESV MOD A4C: 44 ml LALs A2C: 5.4 cm LAAs A2C: 17.5 cm LAESV A-L A2C: 49 ml LAESV MOD A2C: 46 ml LAESV(A-L): 50 ml LAESV Index (A-L): 26.66 ml/m Ao Diam: 2.9 cm (2.0 - 3.7) AV Cusp: 2.0 cm (1.5 - 2.6) EPSS: 0.8 cm MV E Bowen: 1.01 m/s MV DecT: 161 ms MV Dec Dallam: 6.3 m/s MV A Bowen: 0.94 m/s MV E/A Ratio: 1.07 MV PHT: 47 ms AV Vmax: 1.31 m/s AV maxP.86 mmHg MV EF SLOPE: 80.45 mm/s (70 - 150) MV EXCURSION: 17.61 mm (> 18.000) FINDINGS -------- Sinus rhythm. This was a technically good study. The left ventricular size is normal. Left ventricular wall thickness is normal. Overall left vent ricular systolic function is low-normal with, an EF between 50 - 55 %. The right ventricle is normal in size. Normal LA size by volume 22+/-6 ml/m2. The right atrium is normal in size. The aortic valve is trileaflet and appears structurally normal. The mitral valve is normal. The tricuspid valve appears structurally normal. There is no pulmonic regurgitation present. The aortic root size is normal. Normal inferior vena cava with normal inspiratory collapse consistent with estimated right atrial pre ssure of 5 mmHg. The inferior vena cava is mildly dilated. There is no pericardial effusion. CONCLUSIONS -------- 1. Sinus rhythm. 2. This was a technically good study. 3. The left ventricular size is normal. 4. Left ventricular wall thickness is normal. 5. Overall left ventricular systolic function is low-normal with, an EF between 50 - 55 %. 6. The right ventricle is normal in size. 7. Normal LA size by volume 22+/-6 ml/m2. 8. The right atrium is normal in size. 9. The aortic valve is trileaflet and appears structurally normal. 10. The mitral valve is normal. 11. The tricuspid valve appears structurally normal. 12. There is no pulmonic regurgitation present. 13. The aortic root size is normal. 14. Normal inferior vena cava with normal inspiratory collapse consistent with estimated right atrial pressure of 5 mmHg. 15. The inferior vena cava is mildly dilated. 16. There is no pericardial effusion. COURT MESSENGER: Dee Porras RDCS
[2018-03-19] MEDS ORDERED: METOPROLOL TARTRATE 25 MG TAB PO SCH (21:00)
[2018-03-25] MEDS ORDERED: ERGOCALCIFEROL 50,000 UNIT CAP PO SCH (12:00)
[2018-04-16] MEDS ORDERED: CYANOCOBALAMIN 1,000 MCG/ML 1 ML VIAL SQ SCH (12:00)
== END 2018-03-19 14:26 | disposition home or self-care (01) | DRG 313 ==
LOC: EC 14:27 → 3SCARD 17:28
PROVIDERS: ADMIT Hospitalist; ATTEND Hospitalist
DX: R07.89 Other chest pain (principal); N39.0 Urinary tract infection, site not specified; E78.5 Hyperlipidemia, unspecified; F32.9 Major depressive disorder, single episode, unspecified; F43.10 Post-traumatic stress disorder, unspecified; I49.3 Ventricular premature depolarization; Z79.899 Other long term (current) drug therapy; Z87.891 Personal history of nicotine dependence; F41.9 Anxiety disorder, unspecified; Z79.1 Long term (current) use of non-steroidal anti-inflammatories (NSAID); Z88.8 Allergy status to other drugs, medicaments and biological substances
CPT/HCPCS: 36415; 71046; 80048; 80053; 81001; 82550; 82553; 83735; 83880; 84443; 84484; 85025; 85379; 85610; 85730; 87077; 87086; 87186; 93005; 93306; 96361; 96365; 99285

== ENCOUNTER → 2018-05-19 | Outpatient (CLI) | payer OTHER ==
[2018-05-18 12:36] VITALS: BMI 27.4
[2018-05-19 13:52] VITALS: BP 145/98; PULSE 77; RESP 16
--- NOTE | 2018-05-19 14:32 | P.PAINCN ---
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, and a lot of heavy lifting, from that time on she started complaining of her symptoms, patient was treated previously with the pain medication and also she had pain management interventions, which helped her neck pain and low back pain, she had excellent pain relief after cervical epidural steroid injection, and the last injection done more than 6 months ago, patient denies any change in the bowel movement or urination, she denies any fever or night sweats, she denies any motor or sensory deficit even though she feels that her left arm is weaker than the right side Past Medical History Past Medical History: Hyperlipidemia Additional Past Medical History / Comment(s): Arrythymia, Ear sensitivity, DDD neck and back, Vertigo History of Any Multi-Drug Resistant Organisms: None Reported Past Surgical History: Breast Surgery, Section Additional Past Surgical History / Comment(s): open myomectomy, cosmetic surgery , breast reduction Past Anesthesia/Blood Transfusion Reactions: No Reported Reaction Past Psychological History: Anxiety, Depression, PTSD Smoking Status: Former smoker Past Alcohol Use History: Daily Additional Past Alcohol Use History / Comment(s): 2 glasses of wine a night. smoker age 15 <1ppd quit 1996 Past Drug Use History: None Reported - Past Family History Mother Family Medical History: No Reported History Medications and Allergies Home Medications Medication Instructions Recorded Confirmed Type Cyanocobalamin [Vitamin B-12 1,000 mcg SQ QMONTH 03/18/18 05/18/18 History Injection] DULoxetine HCL [Cymbalta] 30 mg PO BID 03/18/18 05/18/18 History Ergocalciferol (Vitamin D2) 50,000 unit PO FR 03/18/18 05/18/18 History [Drisdol] Fluocinonide 0.05% [Lidex 0.05% 15 applic TOPICAL DAILY 03/18/18 05/18/18 History cream] Ibuprofen [Motrin] 600 mg PO TID 03/18/18 05/18/18 History Lidocaine 5% Patch [Lidoderm 5% 1 patch TOPICAL Q12HR PRN 03/18/18 05/18/18 History Patch] Metoprolol Tartrate [Lopressor] 12.5 mg PO BID 05/18/18 05/18/18 History Allergies Allergy/AdvReac Type Severity Reaction Status Date / Time fluoxetine Allergy Swelling Verified 05/19/18 13:33 pregabalin [From Lyrica] Allergy Swelling Verified 05/19/18 13:33 Physical Exam Vitals: Vital Signs Pulse Resp BP Pulse Ox 05/19/18 13:35 77 16 145/98 96 Social history : not smoker , NO ETOH , NO Illegal drugs use . Review of Systems : 1- Constitutional : no chills , no fever , no night sweats , 2- Ears : no ear discharge , no change in hearing 3-Nose, Mouth ,Throat ; no bleeding gums, no sore throat , no epistaxis , 4-Cardiovascular : Denies chest pain, , no orthopnea , no palpitation 5-Respiratory : Denies cough , no dyspnea , no hemoptysis 6-Gastrointestinal :, no change in bowel habits , no coffee- ground emesis . 7-Genitourinary : No hematuria , no discharge , no incontinence, 8-Musculoskeletal : No gait dysfunction , report low back pain , 9- Neurological : no ataxia , no tremor , no sezure , 10-Psychatric , no suicidal ideation no hallucination 11- Endocrine : no cold intolerence , no polyuria , no polydypsia , 12-Hematologic : no easy bleeding , no easy brusing , 13-Allergic / immunology : no angioedema , no wheezing ,no allergic rhinitis 14-Integumentary : no brttle nails , no change hair / nails , no foot/leg ulcers . Physical Examinations : 1-Constitutional : Cooperative , not in acute distress . 2-HEENT : nech ; supple , no Lymphadenopathy , no Thyromegaly , :eyes , no icterus, no photophobia . ENT : , normal oropharynx , no Thrush 3- Respiratory : Chest clear to auscultations Bilaterally , no wheezing 4- Cardiovascular : regular rate and rhythem , S1 , S2 , no S3 , no S4. 5- Gastrointestinal: abdomen soft no tenderness , no organomegally . 6- Genitourinary : Defferred . 7-Integumentary : No cellulitis , no ulcers , normal skin turgor , no cyanotic . 8- neurologic : Cranial nerve II to XII intact , no focal neurological deffecit 9-psychatric : alert , oriented X 3 , appropriate affect , intact judgment and insight . 10-Lymphatic : no Lymphadenopathy. 11- musculoskeltal: normal gait Cervical Spine motor stregnth in the deltoid and biceps, normal right side , normal Left side motor stregnth biceps and the wrist extensors normal right side ,normal left side . motor stregnth in the triceps muscle . normal Right side , normal Left side deep tendon reflexes normal at the biceps , normal at Brachioradialis , normal at triceps. Spurling test = positive Neck distraction test= positive Culver sign= positive positive cervical facet loading test . Lumber spine moter stegnth lower extremities ,thigh and legs 5/5 Right side , 5/5 Left side deep tendon reflexes : normal Knee Jerk , normal ankle Jerk positive lumber facet Loading Test Range of motion of the lumbar spine Flexion 30 degrees, extension 10 degrees strait leg raising test , positive at 30 degree bilaterally Fabere test positive RT and positive LT . Severe tenderness over the sacroiliac joint on the right side, and on the left side Gaenslen test= positive bilaterally Seated flexion test= positive bilaterally Results Comments: MRI of the lumbar spine L3 4 and L4 5 lumbar bulging disc disease. MRI of the cervical spine C45 disc bulging and C6 7 canal stenosis and foraminal narrowing Assessment and Plan Plan: Assessment and plan=1-cervical radiculopathy , 2-cervical bulging disc disease 3 -clinical findings of cervical spondylosis with facet arthropathy. 2-lumbar radiculopathy 2-lumbar bulging disc disease 3-bilaterally sacroiliitis. Patient reporting that most of her pain in the cervical area , patient could benefit from cervical epidural steroid injections Procedure risk and benefits discussed with the patient and she agreed with the procedure. In the future we can schedule patient to have lumbar epidural steroid injection to treat her low back pain Time with Patient: Greater than 30 PQRS Measure Charge Sheet Measure #130: Documentation of Current Meds in Medical Chart: Patient's medications documented in chart Measure #226: Tobacco Use: Screen & Cessation Intervention: Pt not a tobacco user Measure #111: Pneumonia Vaccination: Pneumococcal vaccine NOT administered or previously given Measure #47: Advance Care Plan: Advance care planning discussed & documented, pt chose/unable to give Measure #412: Opioid Treatment Agreement: No documentation of signed opioid treatment agreement Measure #408: Opioid Therapy Follow-up Evaluation: Patient had NO f/u eval minimum every 3 months during opioid therapy Measure #317: Preventitive Care & Scrn High Bld Press & F/U: Pre-hypertensive or hypertensive BP documented, pt will f/u with PCP Measure #128: Body Mass Index (BMI) Screening & Follow-up: BMI documented ABOVE normal parameters - f/u documented Measure #131: Pain Assessment & Follow-up: Pain positive & plan documented, Follow-up scheduled Measure #431: Unhealthy Alcohol Use Preventative Care & Scrn: Patient not identified as an unhealthy alcohol user PQRS Narrative: Smoking Status Former smoker Do You Want the Pneumonia Vaccine Up to Date Vaccine AT THIS TIME? Blood Pressure 145/98 Pain Intensity [Posterior Neck 8 ] Scale Used Numeric (1 - 10) Hx Alcohol Use (MH) Yes: 1 daily Home Medications: Ambulatory Orders Cyanocobalamin [Vitamin B-12 Injection] 1,000 mcg SQ QMONTH 03/18/18 DULoxetine HCL [Cymbalta] 30 mg PO BID 03/18/18 Ergocalciferol (Vitamin D2) [Drisdol] 50,000 unit PO FR 03/18/18 Fluocinonide 0.05% [Lidex 0.05% cream] 15 applic TOPICAL DAILY 03/18/18 Ibuprofen [Motrin] 600 mg PO TID 03/18/18 Lidocaine 5% Patch [Lidoderm 5% Patch] 1 patch TOPICAL Q12HR PRN 03/18/18 Metoprolol Tartrate [Lopressor] 12.5 mg PO BID 05/18/18
== END | disposition home or self-care (01) ==
LOC: PNWHC3 13:16
PROVIDERS: ATTEND Specialist
DX: G89.29 Other chronic pain (principal); M48.02 Spinal stenosis, cervical region; M50.10 Cervical disc disorder with radiculopathy, unspecified cervical region; M51.16 Intervertebral disc disorders with radiculopathy, lumbar region; M47.22 Other spondylosis with radiculopathy, cervical region; M46.92 Unspecified inflammatory spondylopathy, cervical region; M46.1 Sacroiliitis, not elsewhere classified; E78.5 Hyperlipidemia, unspecified; Z87.891 Personal history of nicotine dependence; Z79.899 Other long term (current) drug therapy; Z88.8 Allergy status to other drugs, medicaments and biological substances
CPT/HCPCS: 99211

== ENCOUNTER 2018-05-31 08:46 | Day surgery (SDC) | payer OTHER ==
[2018-05-27 12:20] VITALS: BMI 27.4
[~2018-05-31 08:46] MED LIST: SODIUM CHLORIDE 0.9% 500 ML 500 ML IV SCH
[2018-05-31 09:21] VITALS: RESP 18; TEMP 97.7
[2018-05-31] MEDS ORDERED: LACTATED RINGERS 1,000 ML IV ONE (09:29)
[2018-05-31] MEDS ORDERED: LIDOCAINE 1% 20 ML VIAL (10MG/ML) FOR IV START INTRADERMA ONE (09:30)
--- NOTE | 2018-05-31 10:28 | P.PCN ---
Date of Procedure: 05/31/18 Procedure(s) Performed: . PROCEDURE 1. Cervical epidural steroid injection under fluoroscopic guidance, C7-T1 2. Cervical epidurogram. PREOPERATIVE DIAGNOSIS: 1- Cervical Degenerative Disc Diseases 2- Cervical radiculopathy. 3-cervical spondylosis with cervical Facet arthropathy without myelopathy POSTOPERATIVE DIAGNOSIS: : 1- Cervical Degenerative Disc Diseases , 2- Cervical radiculopathy. 3-,cervical spondylosis with cervical Facet arthropathy without myelopathy ANESTHESIA: Local anesthesia with lidocaine 1 % , and moderate sedation, with Versed 2 mg and Fentanyl 50 mcg. EBL 0 PROCEDURE INDICATION: The patient with neck pain and radiculitis unresponsive to conservative treatment consents for procedure. PROCEDURE DESCRIPTION / TECHNIQUE: The patient was seen and identified in the preoperative area. Risks, benefits, complications, including but not limited to infections ,bleeding , allergic reactions to the medications ,and not complete pain releife, and alternatives were discussed with the patient, the patient agreed to proceed with the procedure and signed the consent. Patient was taken to the OR and time out was completed. The patient was placed in the prone position on the procedure table. A pillow was placed under the patients chest to increase the cervical interlaminar space. The cervical area was prepped and draped in the usual sterile fashion. Vital signs were closely monitored during the procedure. Conscious sedation was used during the procedure to decrease patients anxiety. Using anterior-posterior fluoroscopy, the C7-T1 interlaminar space was identified and the skin over this site was marked and then infiltrated with 1% lidocaine subcutaneously. Subsequently, a 20-gauge 3-1/2-inch Tuohy epidural needle was inserted and advanced toward the epidural space by means of the `` hanging-drop technique and guided by AP and lateral fluoroscopy. The correct needle position in the epidural space was verified with the injection of 2 mL of the water soluble contrast dye [id number] and observing an excellent epidurogram with the epidural spread of the dye, after negative aspiration for blood and CSF and in the absence of paresthesias. Again after negative aspiration, mixture containing 20 mg Dexamethasone and 2 ml of preservative- free normal saline injected and a washout of epidurogram was seen. Needle was withdrawn intact, skin was cleansed, and bandages were applied. Complications= none. Disposition= patient was placed in supine position and transferred to the recovery room area in stable condition and there was no evidence of upper or lower extremity motor or sensory deficit after the procedure patient was discharged from recovery room after discharge criteria met and home discharge instructions was given by the staff and patient will follow with the pain clinic in 2-4 weeks
[2018-05-31] MEDS ORDERED: IV FLUID CONTINUATION 700 ML IV ONE (10:40)
[2018-05-31 10:59] VITALS: BP 126/84; PULSE 64
--- NOTE | 2018-05-31 11:51 | FL ---
Fluoroscopy HISTORY: Pain 1 seconds fluoroscopy time supplied to the referring clinician. 1 intraoperative C-arm images docume nt the procedure. See dictated report from anesthesia.
== END 2018-05-31 11:09 | disposition home or self-care (01) ==
LOC: ORPAIN 08:46
PROVIDERS: ATTEND Specialist
DX: M50.121 Cervical disc disorder at C4-C5 level with radiculopathy (principal); M47.22 Other spondylosis with radiculopathy, cervical region; M48.02 Spinal stenosis, cervical region; M51.16 Intervertebral disc disorders with radiculopathy, lumbar region; M46.1 Sacroiliitis, not elsewhere classified; E78.5 Hyperlipidemia, unspecified; I49.9 Cardiac arrhythmia, unspecified; R42 Dizziness and giddiness; F41.9 Anxiety disorder, unspecified; F32.9 Major depressive disorder, single episode, unspecified; F43.10 Post-traumatic stress disorder, unspecified; Z79.1 Long term (current) use of non-steroidal anti-inflammatories (NSAID); Z79.899 Other long term (current) drug therapy; Z87.891 Personal history of nicotine dependence; Z88.8 Allergy status to other drugs, medicaments and biological substances
CPT/HCPCS: 62321; J2250; J1100; J3010; Q9966

== ENCOUNTER → 2018-06-14 | Day surgery (SDC) | payer OTHER ==
[2018-06-09 15:59] VITALS: BMI 27.4
== END ==
LOC: ORPAIN 08:34
PROVIDERS: ATTEND Specialist
DX: M54.2 Cervicalgia (principal); Z53.9 Procedure and treatment not carried out, unspecified reason

== ENCOUNTER 2018-06-29 08:30 | Day surgery (SDC) | payer OTHER ==
[2018-06-27 18:18] VITALS: BMI 27.1
[2018-06-29 09:14] VITALS: RESP 16; TEMP 97.6
[2018-06-29] MEDS ORDERED: LACTATED RINGERS 1,000 ML IV ONE (09:29)
[2018-06-29] MEDS ORDERED: LIDOCAINE 1% 20 ML VIAL (10MG/ML) FOR IV START INTRADERMA ONE (09:29)
--- NOTE | 2018-06-29 10:20 | P.PCN ---
Date of Procedure: 06/29/18 Procedure(s) Performed: procedures= 1. Cervical epidural steroid injection under fluoroscopic guidance, C7-T1 2. Cervical epidurogram. PREOPERATIVE DIAGNOSIS: 1- Cervical Degenerative Disc Diseases 2- Cervical radiculopathy. 3-cervical spondylosis with cervical Facet arthropathy without myelopathy POSTOPERATIVE DIAGNOSIS: : 1- Cervical Degenerative Disc Diseases , 2- Cervical radiculopathy. 3-,cervical spondylosis with cervical Facet arthropathy without myelopathy ANESTHESIA: Local anesthesia with lidocaine 1 % , and moderate sedation, with Versed 2 mg and Fentanyl 50 mcg. EBL 0 PROCEDURE INDICATION: The patient with neck pain and radiculitis unresponsive to conservative treatment consents for procedure. PROCEDURE DESCRIPTION / TECHNIQUE: The patient was seen and identified in the preoperative area. Risks, benefits, complications, including but not limited to infections ,bleeding , allergic reactions to the medications ,and not complete pain releife, and alternatives were discussed with the patient, the patient agreed to proceed with the procedure and signed the consent. Patient was taken to the OR and time out was completed. The patient was placed in the prone position on the procedure table. A pillow was placed under the patients chest to increase the cervical interlaminar space. The cervical area was prepped and draped in the usual sterile fashion. Vital signs were closely monitored during the procedure. Conscious sedation was used during the procedure to decrease patients anxiety. Using anterior-posterior fluoroscopy, the C7-T1 interlaminar space was identified and the skin over this site was marked and then infiltrated with 1% lidocaine subcutaneously. Subsequently, a 20-gauge 3-1/2-inch Tuohy epidural needle was inserted and advanced toward the epidural space by means of the ``hanging-drop technique and guided by AP and lateral fluoroscopy. The correct needle position in the epidural space was verified with the injection of 2 mL of the water soluble contrast dye [id number] and observing an excellent epidurogram with the epidural spread of the dye, after negative aspiration for blood and CSF and in the absence of paresthesias. Again after negative aspiration, mixture containing 20 mg Dexamethasone and 2 ml of preservative- free normal saline injected and a washout of epidurogram was seen. Needle was withdrawn intact, skin was cleansed, and bandages were applied. Complications= none. Disposition= patient was placed in supine position and transferred to the recovery room area in stable condition and there was no evidence of upper or lower extremity motor or sensory deficit after the procedure patient was discharged from recovery room after discharge criteria met and home discharge instructions was given by the staff and patient will follow with the pain clinic in 2-4 weeks p
[2018-06-29] MEDS ORDERED: IV FLUID CONTINUATION 1,000 ML IV ONE ×2 (10:23)
[2018-06-29 10:27] VITALS: BP 140/87; PULSE 75
--- NOTE | 2018-06-29 12:02 | FL ---
EXAMINATION TYPE: FL guided pain mgmt statistic DATE OF EXAM: 06/29/2018 CLINICAL HISTORY: Neck pain. TECHNIQUE: Fluoroscopy. COMPARISON: None. FINDINGS: Fluoroscopic guidance was provided during pain relief procedure performed by Dr. Erazo . A total of 3 seconds of fluoroscopic time was utilized during the procedure and two spot images ar e acquired. Images acquired shows needle localization of the cervical spine. IMPRESSION: As Above.
== END 2018-06-29 10:55 | disposition home or self-care (01) ==
LOC: ORPAIN 08:30
PROVIDERS: ATTEND Specialist
DX: M47.22 Other spondylosis with radiculopathy, cervical region (principal); M50.13 Cervical disc disorder with radiculopathy, cervicothoracic region
CPT/HCPCS: 62321; J2250; J1100; J3010; Q9966

== ENCOUNTER → 2018-07-13 | Outpatient (CLI) | payer OTHER ==
[2018-07-13 14:10] VITALS: BP 177/95; PULSE 86; RESP 18
--- NOTE | 2018-07-13 14:38 | P.PN ---
Subjective Progress Note Date: 07/13/18 This is a 53-year-old lady with history of neck and lower back pain. The patient had 2 cervical epidural steroid injection which has helped her pain in the neck significantly however she came in today with increasing lower back pain and numbness in the right leg. Today, pt denies new-onset weakness, bowel/bladder incontinence, or any other signs or symptoms of cauda equina syndrome. There are no signs of acute intoxication, and no indications of medication diversion or overuse. In addition to above, 13-point review of systems is also negative for chest pain, shortness of breath, changes in vision, changes in hearing, new onset weakness, abdominal pain, diarrhea, extreme fatigue, malaise, fever, skin changes, homicidal or suicidal ideation, or bowel or bladder incontinence. Vital Signs: Reviewed in EMR Gen: AAOx3, NAD HEENT: PERRLA,hearing grossly normal Pulm: resp unlabored Neck: supple, trachea midline Neuro exam of the lower extremities: Decreased but symmetrical knee flexion and extension bilaterally, normal ankle flexion and extension bilaterally. Symmetrical knee reflexes and absent left ankle reflex and normal right ankle reflex. Straight leg raising test: Negative bilaterally. 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 Explanation: Opioid and psychological risk scores were reviewed. Diagnoses, prognoses, and multiple treatment options including but not limited to physical therapy, interventional therapies, adjuvant medical therapies, narcotic medication therapies, and surgery were discussed with the patient and all questions were answered to the patient's satisfaction. 2. Opioid agreement: Signed with the patient and the patient is warned not to use opioids while driving or before driving and not to combine opioids with benzodiazepines or alcohol. 3. Counseling: The patient was counseled extensively on SMOKING CESSATION, BODY MASS INDEX, EXERCISE. Specifically, the patient was instructed regarding the importance of smoking cessation, obesity, and exercise in the context of both chronic pain and overall health. 4. Procedures: Schedule right sacroiliac joint steroid injection 2 and if the patient gets good results then we can plan on doing RFA in the future 5. Consultations: None 6. Investigations: None 7. Medications: None 8. Disposition: Return to the above-mentioned procedure as soon as possible 9. Maps were reviewed and were appropriate. PQRS measures: 1-Patient's medications are documented in the chart. 2-Tobacco use is negative, counseling given 3-Patient has had a pneumococcal vaccine. 4-Advanced care planning discussed, patient unable to give 5-Opioid contract signed with the patient. 6-Pain positive, follow-up visit or procedure scheduled 7-Patient's blood pressure measured and documented above limits. The patient will follow up with his primary care physician. 8-Patient's weight was measured, and body mass index ABOVE the normal limits, and counseling was done. Patient instructed to follow up with PCP. 9-Patient WAS NOT identified as an unhealthy alcohol user. C Objective - Vital Signs Vital signs: Vital Signs Temp Pulse 86 07/13/18 14:00 Resp 18 07/13/18 14:00 BP 177/95 07/13/18 14:00 Pulse Ox 96 07/13/18 14:00 Intake & Output 07/12/18 07/13/18 07/13/18 18:59 06:59 18:59 Weight 77.111 kg
== END ==
LOC: PNWHC3 13:51
PROVIDERS: ATTEND Anesthesiology
DX: M47.816 Spondylosis without myelopathy or radiculopathy, lumbar region (principal); M54.12 Radiculopathy, cervical region; M46.1 Sacroiliitis, not elsewhere classified
CPT/HCPCS: 99211

== ENCOUNTER 2018-07-27 07:49 | Day surgery (SDC) | payer OTHER ==
[2018-07-14 14:56] VITALS: BMI 27.4
[~2018-07-27 07:49] MED LIST changes: +LACTATED RINGERS 1,000 ML IV SCH; -SODIUM CHLORIDE 0.9% 500 ML 500 ML IV SCH
[2018-07-27 09:14] VITALS: RESP 18; TEMP 97.8
[2018-07-27 09:21] LABS: Glucose,Whole Blood 81 mg/dL (75-99)
[2018-07-27] MEDS ORDERED: LACTATED RINGERS 1,000 ML IV ONE (09:22)
[2018-07-27] MEDS ORDERED: LIDOCAINE 1% 20 ML VIAL (10MG/ML) FOR IV START INTRADERMA ONE (09:23)
--- NOTE | 2018-07-27 10:00 | P.PCN ---
Date of Procedure: 07/27/18 Surgeon: Kae Vilchis Pathology: none sent Condition: stable Disposition: PACU Description of Procedure: Preoperative diagnoses= sacroiliac joint dysfunction and sacroiliitis on the Rt side Postoperative diagnoses= same as preoperative diagnosis. Procedure= sacroiliac joint steroid injection under fluoroscopic guidance. Anesthesia= local anesthesia with lidocaine 1% and IV moderate conscious sedation Estimated blood loss=minimal. Procedure indication= the patient had a history of severe chronic low back pain, diagnosed with sacroiliitis and lumbar sacral facet arthropathy unresponsive to conservative treatment. Procedure description= the patient was seen and identified in the preoperative holding area, risks and benefits and alternative of the procedure and possible complications discussed with the patient, patient signed the consent. an IV was started, and vital signs were monitored and were stable throughout the procedure, patient was placed in the prone position or table and the lumbosacral area was prepped and draped with a sterile fashion, vital signs were closely monitored during the procedure.The sacroiliac joint was identified on the AP view of fluoroscopy then the C-arm was tilted to the oblique position to superimpose the anterior and posterior joint lines on each other and to have a unified joint line with the target point at the inferior one third of this line. I used 22-gauge 3-1/2 inch Quincke spinal needle for this procedure and after getting into the sacroiliac joint I injected 40 mg of Kenalog +2 MLS of Ropivacaine 0.5%. Patient tolerated the procedure well without any complication, The patient returned to supine position after the back was cleaned and a Band- Aid applied, the patient transported to recovery room in stable condition and he was monitored for 30 minutes before he was discharged home and then patient was reexamined before going home and patient was discharged in stable condition and patient will
[2018-07-27 10:09] VITALS: BP 130/76; PULSE 82
--- NOTE | 2018-07-27 10:22 | FL ---
EXAMINATION TYPE: FL guided pain mgmt statistic DATE OF EXAM: 07/27/2018 CLINICAL HISTORY: Right sacroiliac joint pain TECHNIQUE: Fluoroscopy. COMPARISON: None. FINDINGS: Fluoroscopic guidance was provided during procedure performed by Dr. Vilchis. A total of 4 seconds of fluoroscopic time was utilized during the procedure and 1 spot images was acquired. IMPRESSION: As Above.
[2018-07-27] MEDS ORDERED: IV FLUID CONTINUATION 1,000 ML IV ONE (10:33)
== END 2018-07-27 10:37 | disposition home or self-care (01) ==
LOC: ORPAIN 07:49
PROVIDERS: ATTEND Anesthesiology
DX: M53.3 Sacrococcygeal disorders, not elsewhere classified (principal); M46.1 Sacroiliitis, not elsewhere classified; Z88.8 Allergy status to other drugs, medicaments and biological substances; M47.22 Other spondylosis with radiculopathy, cervical region; G89.29 Other chronic pain
CPT/HCPCS: 27096; J2250; J3301; J3010

== ENCOUNTER 2018-08-10 09:42 | Day surgery (SDC) | payer OTHER ==
[2018-08-08 10:22] VITALS: BMI 26.6
[2018-08-10 10:01] VITALS: TEMP 99
[2018-08-10] MEDS ORDERED: LIDOCAINE 1% 20 ML VIAL (10MG/ML) FOR IV START INTRADERMA ONE (10:12)
[2018-08-10] MEDS ORDERED: IV FLUID CONTINUATION 1,000 ML IV ONE (10:54)
[2018-08-10 11:04] VITALS: BP 136/83; PULSE 62; RESP 18
--- NOTE | 2018-08-10 11:27 | P.PCN ---
Date of Procedure: 08/10/18 Surgeon: Kevyn Cook Description of Procedure: Preoperative diagnoses: right sacroilitis Postoperative diagnoses: right sacroilitis. Procedure: right sacroiliac joint steroid injection under fluoroscopic guidance. Surgeon: Kevyn Cook MD Anesthesia: IV sedation per hospital guidelines EBL: None Procedure indication: The patient had a history of severe chronic low back pain, diagnosed with sacroiliitis and lumbar sacral facet arthropathy unresponsive to conservative treatment. Procedure description: The patient was seen and identified in the preoperative holding area, risks and benefits and alternative of the procedure and possible complications discussed with the patient, and he agreed with the preceding, patient signed the consent, an IV was started, and vital signs were monitored and were stable throughout the procedure, patient was placed in the prone position or table and the lumbosacral area was prepped and draped with a sterile fashion, vital signs were closely monitored during the procedure, the fluoroscopy camera was placed in the contralateral oblique view on the right sacroiliac joint and the lower part of the joint was identified a 2 mL then a 25-gauge Quincke-type spinal needle advanced slowly under fluoroscopy and placed in the posterior and inferior border of the right sacroiliac joint, placement confirmed with AP and lateral view, and after appropriate needle placement confirmed and after negative aspiration for heme and CSF and there was , 3 ml of Marcaine 0.5% and 40 mg of Depo-Medrol injected after negative aspiration, no paresthesia during the injection, no resistance to injection, and the needle was removed. The entire same procedure was repeated for the left sacroiliac joint Patient tolerated the procedure well without any complication. The patient returned to supine position after the back was cleaned and a Band- Aid applied, the patient transported to recovery room in stable condition and he was monitored for 30 minutes before he was discharged home and then patient was reexamined before going home and patient was discharged in stable condition and patient will follow up with the pain clinic in a few weeks to screen for radio frequency ablation
--- NOTE | 2018-08-10 13:25 | FL ---
EXAMINATION TYPE: FL guided pain mgmt statistic DATE OF EXAM: 08/10/2018 CLINICAL HISTORY: Sacroiliac joint pain. TECHNIQUE: Fluoroscopy. COMPARISON: None. FINDINGS: Fluoroscopic guidance was provided during pain relief procedure performed by Dr. Cook. A total of 1 seconds of fluoroscopic time was utilized during the procedure and 1 spot images are acq uired. Image acquired shows needle localization of the sacroiliac joint. IMPRESSION: As Above.
== END 2018-08-10 11:13 | disposition home or self-care (01) ==
LOC: ORPAIN 09:42
PROVIDERS: ATTEND Pain Medicine Pain Medicine
DX: G89.29 Other chronic pain (principal); M46.1 Sacroiliitis, not elsewhere classified; Z88.8 Allergy status to other drugs, medicaments and biological substances
CPT/HCPCS: 27096; J2250; J1030; J3010

== ENCOUNTER → 2018-09-06 | Outpatient (CLI) | payer OTHER ==
[2018-09-06 11:58] VITALS: BP 137/94; PULSE 70; RESP 16
--- NOTE | 2018-09-06 12:14 | P.PN ---
Subjective Progress Note Date: 09/06/18 Carmen is s/p 2 SIJ injections on the Right. She presents today for follow-up and is interested in longer term options. She reports that her VAS today is 2 or 3 out of 10. She reports she has never felt as good as she has been feeling recently. She has been in pain for many years and feels excellent now. She has been in physical therapy many times and has not had any improvement. She has not been able to exercise secondary to her pain. She reports pain across her low back and in her right buttocks. She didn't denies any radicular symptoms or any bowel or bladder incontinence. She also complains of bilateral neck and shoulder pain which we have done cervical epidural steroid injections for her in the past. She currently uses ibuprofen as needed. She reports she is taking a lot less ibuprofen that she has been in the past secondary to the relief from the injection Objective - Exam General: Awake and alert oriented 3 no distress Respiratory exam: No audible wheezing no accessory muscle usage Cardiovascular exam: regular rate, palpable bilateral pulses, no lower extremity edema Abdominal exam: No distention nontender to palpation Cervical spine: Normal alignment, Spurling's negative, facet loading negative, Canal Driver strength is 5/5, juarez negative Lumbar spine: Loss of lumbar lordosis, normal alignment, tender to palpation over bilateral paraspinal muscles, facet loading is positive on the right. Straight leg raise is negative. Limited range of motion due to pain with flexion, extension and side bending. Sacroiliac joints: Tender palpation of the right SI joint. Fauzia test is positive on the right. Gaenslen's positive on the right. Neuro exam: Normal sensation in bilateral upper extremities, deep tendon reflexes are 2+ bilateral upper extremities. Normal sensation in bilateral lower extremities. Deep tendon reflexes are 2+ in lower extremities Psych exam: Cooperative, appropriate mood Assessment and Plan Assessment: Sacroiliitis Lumbar spondylosis without myelopathy Plan: Had along discussion with the patient and her regarding pain in her pain syndrome. I've discussed many options ranging from conservative to surgical options for her pain. I advised her to continue exercise on a regular basis and stretching. I advised her to continue working on the things she is limited to physical therapy in the past. She would like to move forward with the right- sided SI joint radiofrequency ablation. I advised that we will get preauthorization from [id number] before moving forward Time with Patient: Less than 30
== END | disposition home or self-care (01) ==
LOC: PNWHC3 11:47
PROVIDERS: ATTEND Hospitalist
DX: M47.816 Spondylosis without myelopathy or radiculopathy, lumbar region (principal); M46.1 Sacroiliitis, not elsewhere classified
CPT/HCPCS: 99211

== ENCOUNTER 2018-09-08 09:43 | Day surgery (SDC) | payer OTHER ==
[2018-09-08 09:57] VITALS: RESP 16; TEMP 97.5
[2018-09-08] MEDS ORDERED: LACTATED RINGERS 1,000 ML IV ONE (10:00)
[2018-09-08] MEDS ORDERED: LIDOCAINE 1% 20 ML VIAL (10MG/ML) FOR IV START INTRADERMA ONE (10:00)
[2018-09-08] MEDS ORDERED: IV FLUID CONTINUATION 1,000 ML IV ONE (10:50)
--- NOTE | 2018-09-08 10:50 | P.PCN ---
Date of Procedure: 09/08/18 Procedure(s) Performed: PREOPERATIVE DIAGNOSIS: 1-Lumbosacral spondylosis with facet arthropathy without myelopathy. 2- Right sacroiliit. post operative Diagnosis: . 1-Lumbosacral spondylosis with facet arthropathy without myelopathy. 2- Right sacroiliit. PROCEDURES: 1- Right radiofrequency thermocoagulation/ablation of the L5 dorsal ramus. 2- Right multi-site radiofrequency thermocoagulation/ablation of the S1, S2, and S3 lateral branchs. The procedure was performed using fluoroscopic guidance during needle placement to assure proper position and maximize safety . ANESTHESIA: LOCAL ANESTHESIA = moderate sedation with intravenous versed 2 mg and Fentanyle 100 mcg EBL: NONE INDICATION/MEDICAL NECESSITY: History of low back pain secondary to right sacroiliitis and lumbosacral art hropathy unresponsive to more conservative treatments. The patient reported more than 50% relief of pain symptoms following 2 previous diagnostic blocks with Bupivacaine. PROCEDURE DESCRIPTION: The patient was seen and identified in the preoperative area. Risks, benefits, complications, and alternatives were discussed with the patient. The patient agreed to proceed with the procedure and signed the consent. Vital signs were checked before and after the procedure and they remained stable. Patient ambulated to the procedure room and time out was completed. The patient was placed in the prone position on the procedure table and a pillow was placed under the abdomen to reduce lumbar lordosis. The lumbosacral area was prepped and draped in the usual sterile fashion. Critical pause was taken. L5 Dorsal Ramus RF: Using right oblique fluoroscopy, the junction of the transverse process and the superior articular process of the right S1 vertebra, which correspond to the fluoroscopic image of the "eye of the Gian dog" was identified. Subsequently, a 10-cm 20 -gauge radiofrequency cannula with a 10-mm active tip was advanced under fluoroscopic guidance until contact was made with periosteum. At this level, the Sensory testing of the L5 dorsal ramus was performed at 50 Hz and 0 to 1 volt with production of concordant pain starting at 0.5 volt. Motor stimulation was done at 2.5 Hz with stimulation of mulitifidus muscle contration . No radicular symptoms or paresthesias were produced during the testing. Subsequently, the L5 dorsal ramus was subjected to a radiofrequency ablation at 80 degree celsius for 90 seconds . after 0.5% Bupivacaine 1 ml injected at each level after negative aspirations . The needle was withdrawn intact . S1, S3, and S3 Lateral Branch RF: The lateral margins of the Right Sacroiliac joints identified using AP fluoroscopy. Under fluoroscopic guidance, three 10-cm 20 -gauge radiofrequency cannula with a 10-mm active tip were inserted and the medial age of the right sacroiliac joint, total of 6 needles placed at the medial edge of the right sacroiliac joint starting from the inferior border going superiorly ,, the sensory testing of the lateral branch was performed at 50 Hz and 0 to 1 volt at all the levels with production of concordant pain starting at 0.5 volt. Motor stimulation was done at 2.5 Hz. No radicular symptoms or paresthesias were produced during the testing. Subsequently, the S1 ,S2 ,S3 lateral branch was subjected to a radiofrequency ablation at a mode of 90 seconds at 80 degrees Celsius at the the levels after negative motor and sensory testing and after injecting 1 ml of the mixture ropivacaine 0.5%. 6 ML and 40 mg of Depo-Medrol extubated her, and 1 mL of the mixture Injected at each level after negative aspiration The needle was withdrawn intact after each injection. COMPLICATIONS: The patient tolerated the procedure well without any acute complications. DISPOSTION/PLAN: The patient ambulated to the recovery area after the procedure in a stable condition for observation. Patient was reexamined prior to discharge. Patient was observed for 30 minutes in the recovery area and was discharged home, accompanied by an adult, after meeting discharged criteria. Discharge instructions were give to the patient by the staff. Patient was specifically instructed not to drive today and to rest for the rest of the day. The patient will schedule a follow up visit in the clinic in weeks or earlier if needed note= I was able to see only the S1 foramina ,the S2 and S3 foramina was not attended defined, patient had a lot of gas in the pelvic area.
[2018-09-08 11:01] VITALS: BP 120/75; PULSE 62
--- NOTE | 2018-09-08 11:52 | FL ---
EXAMINATION TYPE: FL guided pain mgmt statistic DATE OF EXAM: 09/08/2018 CLINICAL HISTORY: Low back an sacroiliac joint pain. TECHNIQUE: Fluoroscopy. COMPARISON: None. FINDINGS: Fluoroscopic guidance was provided during pain relief procedure performed by Dr. Erazo . A total of 17 seconds of fluoroscopic time was utilized during the procedure and 7 spot images are acquired. Images acquired shows needle localization at multiple levels within the sacroiliac joint, presumably right. IMPRESSION: As Above.
== END 2018-09-08 11:26 | disposition home or self-care (01) ==
LOC: ORPAIN 09:43
PROVIDERS: ATTEND Specialist
DX: M47.817 Spondylosis without myelopathy or radiculopathy, lumbosacral region (principal); M46.1 Sacroiliitis, not elsewhere classified
CPT/HCPCS: 64640 ×3; 64635; J2250; J1030; J3010; 64636; 99152; 99153

== ENCOUNTER → 2018-09-29 | Outpatient (CLI) | payer OTHER ==
[2018-09-29 11:01] VITALS: BP 144/93; PULSE 72; RESP 16
--- NOTE | 2018-09-29 11:25 | P.PAINPG ---
Subjective Progress Note Date: 09/29/18 This is a follow-up visit for this 53 years old female with a chronic history of severe neck pain and low back pain, is diagnosed with cervical degenerative disc disease and lumbar bulging disc disease and sacroiliitis , recently we have done radiofrequency ablation of the right sacroiliac joint, she gets excellent pain relief , she had no more pain on the right side and currently she is complaining of severe low back pain mainly in the left buttock area, localized on the left side, she denies any motor or sensory deficit, no fever or night sweats, no change in the bowel movement or urination, the pain is constant and increases with any activity, also patient complaining of some neck pain, she denies any numbness or tingling sensation in the upper extremities. Physical examination 1-Constitutional : Cooperative , not in acute distress . 2-HEENT : nech ; supple , no Lymphadenopathy , no Thyromegaly , :eyes , no icterus, no photophobia . ENT : , normal oropharynx , no Thrush 3- Respiratory : Chest clear to auscultations Bilaterally , no wheezing 4- Cardiovascular : regular rate and rhythem , S1 , S2 , no S3 , no S4. 5- Gastrointestinal: abdomen soft no tenderness , no organomegally . 6- Genitourinary : Defferred . 7-Integumentary : No cellulitis , no ulcers , normal skin turgor , no cyanotic . 8- neurologic : Cranial nerve II to XII intact , no focal neurological deffecit 9-psychatric : alert , oriented X 3 , appropriate affect , intact judgment and insight . 10-Lymphatic : no Lymphadenopathy. 11- musculoskeltal: normal gait Cervical Spine motor stregnth in the deltoid and biceps, normal right side , normal Left side motor stregnth biceps and the wrist extensors normal right side ,normal left side . motor stregnth in the triceps muscle . normal Right side , normal Left side deep tendon reflexes normal at the biceps , normal at Brachioradialis , normal at triceps. Spurling test = positive Neck distraction test= positive Culver sign= positive positive cervical facet loading test . Lumber spine moter stegnth lower extremities ,thigh and legs 5/5 Right side , 5/5 Left side deep tendon reflexes : normal Knee Jerk , normal ankle Jerk positive lumber facet Loading Test Range of motion of the lumbar spine Flexion 30 degrees, extension 10 degrees strait leg raising test =positive at 30 degree bilaterally Fabere test positive LT . Severe tenderness over the sacroiliac joint on the left side Gaenslen test= positive on the left side Seated flexion test= positive on the left side Objective - Vital Signs Vital signs: Vital Signs Temp Pulse 72 09/29/18 11:00 Resp 16 09/29/18 11:00 BP 144/93 09/29/18 11:00 Pulse Ox Intake & Output 09/28/18 09/29/18 09/29/18 18:59 06:59 18:59 Weight 77.111 kg Assessment and Plan Plan: Assessment and plan=chronic severe low back pain secondary to sacroiliitis Pain on the right side improved after right-sided sacroiliac joint RFA, currently she is complaining of increased pain on the left side Exam support that the etiology is coming from the left sacroiliitis, patient would be good candidate to have left-sided sacroiliac joint Steroid injection. Neck pain secondary to cervical degenerative disc disease and cervical spondylosis. Time with Patient: Less than 30 PQRS Measure Charge Sheet Measure #130: Documentation of Current Meds in Medical Chart: Patient's medications documented in chart Measure #226: Tobacco Use: Screen & Cessation Intervention: Pt not a tobacco user Measure #111: Pneumonia Vaccination: Pneumococcal vaccine administered or previously received Measure #47: Advance Care Plan: Advance care planning discussed & documented, pt chose/unable to give Measure #412: Opioid Treatment Agreement: No documentation of signed opioid treatment agreement Measure #408: Opioid Therapy Follow-up Evaluation: Patient had NO f/u eval minimum every 3 months during opioid therapy Measure #317: Preventitive Care & Scrn High Bld Press & F/U: Pre-hypertensive or hypertensive BP documented, pt will f/u with PCP Measure #128: Body Mass Index (BMI) Screening & Follow-up: BMI documented ABOVE normal parameters - f/u documented Measure #131: Pain Assessment & Follow-up: Pain positive & plan documented, Follow-up scheduled Measure #431: Unhealthy Alcohol Use Preventative Care & Scrn: Patient not identified as an unhealthy alcohol user PQRS Narrative: Smoking Status Former smoker Blood Pressure 144/93 Scale Used Numeric (1 - 10) Hx Alcohol Use (MH) Yes: 1 daily Home Medications: Ambulatory Orders Cyanocobalamin [Vitamin B-12 Injection] 1,000 mcg SQ QMONTH 03/18/18 DULoxetine HCL [Cymbalta] 30 mg PO HS 03/18/18 Ergocalciferol (Vitamin D2) [Drisdol] 50,000 unit PO FR 03/18/18 Fluocinonide 0.05% [Lidex 0.05% cream] 15 applic TOPICAL DAILY PRN 03/18/18 Ibuprofen [Motrin] 600 mg PO TID 03/18/18 Lidocaine 5% Patch [Lidoderm 5% Patch] 1 patch TOPICAL DAILY PRN 03/18/18 Nadolol [Corgard] 1 tab PO DAILY 09/06/18 Controlled Substance Measures - Controlled Substance Measures Is patient prescribed a controlled substance at discharge?: No
== END ==
LOC: PNWHC3 10:47
PROVIDERS: ATTEND Specialist
DX: G89.29 Other chronic pain (principal); M46.1 Sacroiliitis, not elsewhere classified; M50.30 Other cervical disc degeneration, unspecified cervical region; M47.812 Spondylosis without myelopathy or radiculopathy, cervical region; Z87.891 Personal history of nicotine dependence; Z79.899 Other long term (current) drug therapy; Z79.1 Long term (current) use of non-steroidal anti-inflammatories (NSAID)
CPT/HCPCS: 99211

== ENCOUNTER 2018-10-06 09:40 | Day surgery (SDC) | payer OTHER ==
[2018-10-04 11:29] VITALS: BMI 27.4
[2018-10-06] MEDS ORDERED: LIDOCAINE 1% 20 ML VIAL (10MG/ML) FOR IV START INTRADERMA ONE (10:26)
[2018-10-06] MEDS ORDERED: LACTATED RINGERS 1,000 ML IV ONE ×2 (10:27)
[2018-10-06 10:28] VITALS: TEMP 97.2
--- NOTE | 2018-10-06 11:12 | P.PCN ---
Date of Procedure: 10/06/18 Procedure(s) Performed: Procedure= Left sacral iliac joints steroid injection under fluoroscopy alyce ferreira Preoperative diagnosis= 1-sacroiliitis 2-lumbar spondylosis with lumbar facet arthropathy Postoperative diagnosis= same as pre op diagnosis Complication = none Condition= stable Anesthesia= moderate sedation with intravenous Versed mg , and fentanyl micrograms and local infiltration with lidocaine 1% 5 mL Indication for the procedure= patient complaining of low back pain , examination was positive for severe tenderness over the sacroiliac joints bilaterally and patient diagnosed with sacroiliitis, for this reason he/ she was good candidate for sacroiliac joint steroid injection. Description of the procedure= procedure risk and benefits discussed with the patient, including but not limited, risk of infection and bleeding, and ALLERGIC reaction to the medication and not complete pain relief and patient agreed with the preceding patient taken to the operating room, placed in prone position or standard monitors applied to the patient then after induction of anesthesia back prepped with chlorhexidine 3 times , Then under strict sterile technique, I did the left sacroiliac joint the which was identified under fluoroscopy guidance been local infiltration of the skin and subcu interstitial with lidocaine 1% then 22-gauge Quincke Needle advanced slowly under fluoroscopy and placed in the left sacroiliac joint needle placement confirmed with AP and oblique and lateral view and after appropriate needle placement confirmed and after negative aspiration, or heme , then Ropivacaine 0.5% 3 mL, and 40 mg of Depo-Medrol mixed together and injected in the left sacroiliac joint after negative aspiration patient tolerated the procedure well without any complication.
[2018-10-06 11:20] VITALS: RESP 18
[2018-10-06] MEDS ORDERED: IV FLUID CONTINUATION 1,000 ML IV ONE (11:47)
[2018-10-06 11:49] VITALS: BP 123/82; PULSE 78
--- NOTE | 2018-10-06 12:41 | FL ---
EXAMINATION TYPE: FL guided pain mgmt statistic DATE OF EXAM: 10/06/2018 FLUOROSCOPY Fluoroscopy time of 3 seconds was used during left SI joint injection. 1 image/s document/s the proc edure.
== END 2018-10-06 11:50 | disposition home or self-care (01) ==
LOC: ORPAIN 09:40
PROVIDERS: ATTEND Specialist
DX: M46.1 Sacroiliitis, not elsewhere classified (principal); M47.816 Spondylosis without myelopathy or radiculopathy, lumbar region; Z88.8 Allergy status to other drugs, medicaments and biological substances
CPT/HCPCS: 27096

== ENCOUNTER 2018-10-24 09:19 | Day surgery (SDC) | payer OTHER ==
[2018-10-18 10:02] VITALS: BMI 26.4
[2018-10-24] MEDS ORDERED: LACTATED RINGERS 1,000 ML IV SCH (09:36)
[2018-10-24 09:51] VITALS: RESP 16; TEMP 97.2
[2018-10-24] MEDS ORDERED: LIDOCAINE 1% 20 ML VIAL (10MG/ML) FOR IV START SQ ONE (09:52)
[2018-10-24 09:56] LABS: Glucose,Whole Blood 89 mg/dL (75-99)
--- NOTE | 2018-10-24 10:44 | P.PCN ---
Date of Procedure: 10/24/18 Procedure(s) Performed: Procedure= Left sacral iliac joints steroid injection under fluoroscopy alyce hanna Preoperative diagnosis= 1-sacroiliitis Postoperative diagnosis= same as pre op diagnosis Complication = none Condition= stable Anesthesia= moderate sedation with intravenous Versed, and fentanyl and local infiltration with lidocaine 1% 5 mL Indication for the procedure= patient complaining of low back pain , examination was positive for severe tenderness over the sacroiliac joints and patient diagnosed with sacroiliitis, for this reason she was good candidate for sacroiliac joint steroid injection. Description of the procedure= procedure risk and benefits discussed with the patient, including but not limited, risk of infection and bleeding, and ALLERGIC reaction to the medication and incomplete pain relief.Patient agreed with the proceeding and was taken to the operating room, placed in prone position. Standard monitors applied to the patient then the back prepped with chlorhexidine 2 times , Then under strict sterile technique, the left sacroiliac joint which was identified under fluoroscopy guidance. Local infiltration of the skin and subcutanous tissue was done with lidocaine 1%. Then a 22-gauge Quincke Needle was advanced under fluoroscopy and placed in the left sacroiliac joint. Needle placement confirmed with AP and lateral view. Then, after negative aspiration, 1 mL of Isovue 200 was injected which revealed an arthrogram in both AP and lateral fluoroscopic imaging. Then, Ropivacaine 0.5% 2 mL, with 40 mg of kenalog was injected in the left sacroiliac joint after negative aspiration. Patient tolerated the procedure well without any complication. The patient reports excellent relief from prior left SI joint injection, but affects are short-lived. She would like to schedule left sided SI joint radiofrequency ablation which we will schedule 1 month from now
[2018-10-24] MEDS ORDERED: LACTATED RINGERS 1,000 ML IV ONE (10:52)
[2018-10-24 11:14] VITALS: BP 144/91; PULSE 65
--- NOTE | 2018-10-24 15:11 | FL ---
EXAMINATION TYPE: FL guided pain mgmt statistic DATE OF EXAM: 10/24/2018 FLUOROSCOPY Fluoroscopy time of 4 seconds was used during left SI joint injection. 2 image/s document/s the proc edure.
== END 2018-10-24 11:23 | disposition home or self-care (01) ==
LOC: ORPAIN 09:19
PROVIDERS: ATTEND Anesthesiology
DX: M46.1 Sacroiliitis, not elsewhere classified (principal); M50.30 Other cervical disc degeneration, unspecified cervical region; M47.812 Spondylosis without myelopathy or radiculopathy, cervical region; M51.26 Other intervertebral disc displacement, lumbar region; Z78.0 Asymptomatic menopausal state; Z87.891 Personal history of nicotine dependence
CPT/HCPCS: 27096

== ENCOUNTER 2018-11-21 07:11 | Day surgery (SDC) | payer OTHER ==
[2018-11-15 15:51] VITALS: BMI 26.9
[2018-11-21 07:50] VITALS: TEMP 98.1
[2018-11-21] MEDS ORDERED: LIDOCAINE 1% 20 ML VIAL (10MG/ML) FOR IV START SQ ONE (07:57)
--- NOTE | 2018-11-21 10:02 | P.PCN ---
Date of Procedure: 11/21/18 Procedure(s) Performed: Bipolar Radiofrequency Ablation of Dorasal Ramus of L5, Lateral Branches of S1 and S2 ATTENDING PHYSICIAN: Milana Adams MD PREOPERATIVE DIAGNOSIS: Left Sacroiliac Joint Pain/ sacroilitis POSTOPERATIVE DIAGNOSIS: same PROCEDURE PERFORMED: Monopolar Radiofrequency Ablation of Dorasal Ramus of L5, bipolar radiofrequency ablation of Lateral Branches of S1, S2 and S3 SIDE: Left IV SEDATION none ESTIMATED BLOOD LOSS: None FLUOROSCOPY WAS USED. Images were saved in the radiology portion of the chart. INDICATIONS FOR PROCEDURE: Patient has a clinical picture consistent with left sacroiliac joint dysfunction and has responded well to SI joint injections in the past, giving her almost 100% pain relief, but short-lived. PROCEDURE AND FINDINGS: The patient was greeted in the pre procedure holding area. The risk, benefits and alternatives to the procedure were again reviewed with the patient and written informed consent was placed in the chart. Prior to the procedure a time out was completed, verifying correct patient, procedure, site, positioning, and implants and/or special equipment. An IV line was placed. The patient was taken to the procedure room and positioned prone on the fluoroscopy table. Routine monitors were applied including EKG leads, blood pressure cuff, and pulse oximetry. The skin was prepped with chlorhexidine and draped in the usual sterile fashion. A fluoroscopic AP view was used to identify the sacral ala and the [] SI joint with the associated S1-S3 foramens medial to the SI joint line. A marker was used to shannen the sacral ala and the lateral aspects of the S1-S3 foramen. Law were made 1 cm apart to perform strip lesion. Then overlying skin and subcutaneous tissues were anesthetized using a 25-gauge 1-1/2-inch needle with 1% preservative free lidocaine for a total volume of 5 mls. Under AP and lateral fluorscopic views, 8 18 gauge 100 mm AdoTubean Bipolar RF needles with a 10 mm active tip were inserted at the L5 dorsal ramus and the lateral aspects of the S1, S2 and S3 foramens and advanced until it touched os. Confirmation of position was then made with a lateral fluoroscopic view to ensure that the tips were posterior to the posterior plate of the sacrum. Motor stimulation at 2 Hz and up to 2V was conducted between sequential probes. There was no observable motor movement in the lower extremities and the patient confirmed this by self-report. After satisfactory motor testing was completed at each level, approximately 0.5 mL of 4% Lidocaine was injected to anesthetize the radiofrequency ablation target. For the probe placed at L5 dorsal ramus, monopolar radiofrequency ablation was carried out at 90 for 150 seconds. Bipolar radiofrequency ablation was carried out at all other levels with a probe temperature set to 90C for 150 seconds. Following lesioning the needles were removed. The needle insertion site was dressed appropriately. The patient was taken to the recovery room where they were monitored for a brief period of time. They tolerated the procedure well and were discharged home in stable condition with post procedural instructions. Follow-up will be in clinic in 4 weeks. COMPLICATIONS: None
[2018-11-21 10:12] VITALS: RESP 16
--- NOTE | 2018-11-21 10:24 | FL ---
EXAMINATION TYPE: FL guided pain mgmt statistic DATE OF EXAM: 11/21/2018 CLINICAL HISTORY: Pain. TECHNIQUE: Fluoroscopy. COMPARISON: None. FINDINGS: Fluoroscopic guidance was provided during pain relief procedure performed by Dr. Danielson. A t otal of 6 seconds of fluoroscopic time was utilized during the procedure and 0 spot images are acquir ed. IMPRESSION: As Above.
[2018-11-21 10:27] VITALS: BP 129/85; PULSE 67
[2018-11-21] MEDS ORDERED: IV FLUID CONTINUATION 1,000 ML IV ONE (10:29)
== END 2018-11-21 10:30 | disposition home or self-care (01) ==
LOC: ORPAIN 07:11
PROVIDERS: ATTEND Anesthesiology
DX: M46.1 Sacroiliitis, not elsewhere classified (principal)
CPT/HCPCS: 64635; 64636; J2250; J3010; 99152; 99153

== ENCOUNTER → 2018-12-08 | Outpatient (CLI) | payer OTHER ==
[2018-12-08 14:58] VITALS: RESP 16
[2018-12-08 15:02] VITALS: BP 133/91; PULSE 61
--- NOTE | 2018-12-08 15:29 | P.PAINPG ---
Subjective Progress Note Date: 12/08/18 She'll follow-up visit for this 53 years old female with a chronic history of severe low back pain., She is diagnosed with lumbar spondylosis and sacroiliitis, previously would have been RFA of the sacroiliac joint, and also patient has severe neck pain previously we have done cervical epidural steroid injections in the beginning of 2019, patient reported that she get short-term benefit from it, currently she is complaining of severe localized pain in the cervical area and the patient is not related to the upper extremity and the pain increases with any neck movement, she denies any motor or sensory deficit she denies any fever or night sweats and no change in the bowel movements or urination Objective - Vital Signs Vital signs: Vital Signs Temp Pulse 61 12/08/18 14:58 Resp 16 12/08/18 14:58 BP 133/91 12/08/18 14:58 Pulse Ox 98 12/08/18 14:58 Intake & Output 12/07/18 12/08/18 12/08/18 18:59 06:59 18:59 Weight 79.379 kg - Constitutional Constitutional Comment(s): Physical Examinations : -Constitutiona : Cooperative , not in acute distress . -HEENT : nech : supple , no Lymphadenopathy , normal thyroid size . eyes : no ptosis , no icterus, no photophobia . ENT : normal of hearing , normal orop harynx , no Thrush . - Respiratory : Chest clear to auscultations Bilaterally , no wheezing , no Rhonchi . - Cardiovascula : regular rate and rhythem , S1 , S2 , no S3 , no S4. - Gastrointestina : abdomen soft no tenderness , bowel sounds , no organomegally . - Genitourinary : Defferred . - neurologic : Cranial nerve II to XII intact , no focal n eurological deffecit . -psychatric : alert , oriented X 3 , appropriate affect , intact judgment and insight . -Lymphatic : no Lymphadenopathy . - musculoskeltal : Cervical Spine motor stregnth in the deltoid and biceps, normal right side , normal Left side motor stregnth biceps and the wrist extensors normal right side ,normal left side . motor stregnth in the triceps muscle . normal Right side , normal Left side deep tendon reflexes normal at the biceps , normal at Brachioradialis , normal at triceps. cervical facet loading test: Positive Bilaterally R>L Spurling test negative bilaterally. Neck distraction test negative bilaterally. Ruy sign negative bilaterally. Lumber spine moter stegnth lower extremities ,thigh and legs 5/5 Right side , 5/5 Left side MRI of the cervical spine bulging disc at C4 5 and C5 6, and C6 7 central canal stenosis Assessment and Plan Plan: Assessment and plan=1-chronic severe low back pain secondary to lumbar spondylosis and sacroiliitis patient reported that her pain improved after the RFA Of the sacroiliac joint. 2-chronic severe neck pain secondary to cervical spondylosis and cervical degenerative disc disease. Patient has short-term benefit after cervical epidural steroid injections 2. Patient could benefit from diagnostic medial branch block cervical area at C3 4/C5/C6 (to cover the facet joint at C4 5 and C5 6 ) Benefits possible proceed with RFA of the m edial branch of the levels mentioned above Time with Patient: Less than 30 PQRS Measure Charge Sheet Measure #130: Documentation of Current Meds in Medical Chart: Patient's medications documented in chart Measure #226: Tobacco Use: Screen & Cessation Intervention: Pt not a tobacco user Measure #111: Pneumonia Vaccination: Pneumococcal vaccine administered or previously received Measure #47: Advance Care Plan: Advance care planning discussed & documented, pt chose/unable to give Measure #412: Opioid Treatment Agreement: No documentation of signed opioid treatment agreement Measure #408: Opioid Therapy Follow-up Evaluation: Patient had NO f/u eval minimum every 3 months during opioid therapy Measure #317: Preventitive Care & Scrn High Bld Press & F/U: Normal blood pressure, f/u not required Measure #128: Body Mass Index (BMI) Screening & Follow-up: BMI documented ABOVE normal parameters - f/u documented Measure #131: Pain Assessment & Follow-up: Pain positive & plan documented, Follow-up scheduled Measure #431: Unhealthy Alcohol Use Preventative Care & Scrn: Patient not identified as an unhealthy alcohol user PQRS Narrative: Smoking Status Former smoker Blood Pressure 133/91 Pain Intensity [Bilateral Hip] 0 Pain Intensity [Lower Neck] 7 Scale Used Numeric (1 - 10) Hx Alcohol Use (MH) Yes: 1 daily Home Medications: Ambulatory Orders Cyanocobalamin [Vitamin B-12 Injection] 1,000 mcg SQ QMONTH 03/18/18 DULoxetine HCL [Cymbalta] 30 mg PO HS 03/18/18 Ergocalciferol (Vitamin D2) [Drisdol] 50,000 unit PO FR 03/18/18 Fluocinonide 0.05% [Lidex 0.05% cream] 15 applic TOPICAL DAILY PRN 03/18/18 Ibuprofen [Motrin] 600 mg PO TID PRN 03/18/18 Lidocaine 5% Patch [Lidoderm 5% Patch] 1 patch TOPICAL DAILY PRN 03/18/18 Nadolol [Corgard] 1 tab PO DAILY 09/06/18 Controlled Substance Measures - Controlled Substance Measures Is patient prescribed a controlled substance at discharge?: No
== END ==
LOC: PNWHC3 13:54
PROVIDERS: ATTEND Specialist
DX: M47.816 Spondylosis without myelopathy or radiculopathy, lumbar region (principal); M46.1 Sacroiliitis, not elsewhere classified; M47.812 Spondylosis without myelopathy or radiculopathy, cervical region; M50.30 Other cervical disc degeneration, unspecified cervical region; Z87.891 Personal history of nicotine dependence; Z79.899 Other long term (current) drug therapy; Z79.1 Long term (current) use of non-steroidal anti-inflammatories (NSAID)
CPT/HCPCS: 99211

== ENCOUNTER 2018-12-15 06:13 | Day surgery (SDC) | payer OTHER ==
[2018-12-14 09:24] VITALS: BMI 26.9
[2018-12-15 06:46] VITALS: TEMP 97.6
[2018-12-15] MEDS ORDERED: LIDOCAINE 1% 20 ML VIAL (10MG/ML) FOR IV START INTRADERMA ONE (06:48)
[2018-12-15] MEDS ORDERED: LACTATED RINGERS 1,000 ML IV ONE (08:00)
--- NOTE | 2018-12-15 08:00 | P.PCN ---
Date of Procedure: 12/15/18 Procedure(s) Performed: PREOPERATIVE DIAGNOSIS: Cervical Spondylosis with Facet Arthropathy.without myelopathy POSTOPERATIVE DIAGNOSIS: Cervical Spondylosis Facet Arthropathy. Without myelopathy PROCEDURES: Diagnostic , bilateral C3, C4, C5 medial branch blocks, with fluoroscopic guidance ANESTHESIA: Local with 1% lidocaine; IV sedation with 2 mg Versed and 50 g of fentanyl. EBL: Minimal PROCEDURE INDICATION: The patient with neck pain secondary to cervical arthropathy unresponsive to more conservative treatments. PROCEDURE DESCRIPTION / TECHNIQUE: The patient was seen and identified in the preoperative area. Risks, benefits, complications, and alternatives were discuss ed with the patient, the patient agreed to proceed with the procedure and signed the consent. IV was started. Vital signs remained stable throughout the procedure. Patient was taken to the OR and time out was completed. The patient was placed in the prone position on the procedure table. A pillow was placed under the patients chest to increase the cervical interlaminar space. The cervical area w as prepped and draped in the usual sterile fashion. Critical pause was taken. Vital signs were closely monitored during the procedure. Conscious sedation was used during the procedure to decrease patients anxiety. Using cross-table lateral fluoroscopy, the centroid of the trapezoid of the right side of the first level was identified, marked, and localized with 1% lidocaine 1 ml at each level for skin and subcutaneous infiltrations . Subsequently, a 25 G 3.5 inch spinal needle was advanced guided by fluoroscopy to the centroid of the trapezoid . Tama tip position was confirmed at the ce ntroid of the trapezoids anteroposterior fluoroscopy. Lateral images were also taken. Subsequently, 75 mL of 0.50% roppivacainel was injected at each level and the needles were removed. The same procedure was done on the left. COMPLICATIONS: No acute complications. COMMENTS: The patient was extremely sensitive with any needle manipulation, including in the soft tissue. Thus she was given additional sedation DISPOSITION / PLANS: The patient was placed in a supine position and transferred to the recovery area in a stable condition for observation and was discharged from the recovery room after meeting discharge criteria. Home discharge instructions given to the patient by the staff. She will follow-up with repeat medial branch block if she had good benefit with this one.
[2018-12-15 08:03] VITALS: RESP 18
--- NOTE | 2018-12-15 08:16 | FL ---
EXAMINATION TYPE: FL guided pain mgmt statistic DATE OF EXAM: 12/15/2018 CLINICAL HISTORY: Neck pain. TECHNIQUE: Fluoroscopy. COMPARISON: None. FINDINGS: Fluoroscopic guidance was provided during pain relief procedure performed by Dr. Erazo . A total of 15 seconds of fluoroscopic time was utilized during the procedure and 4 spot images are acquired. Images acquired shows needle localization and multiple levels in the cervical spine. IMPRESSION: As Above.
[2018-12-15 08:19] VITALS: BP 130/84; PULSE 66
== END 2018-12-15 08:31 | disposition home or self-care (01) ==
LOC: ORPAIN 06:13
PROVIDERS: ATTEND Student in an Organized Health Care Education/Training Program
DX: M47.812 Spondylosis without myelopathy or radiculopathy, cervical region (principal); Z88.8 Allergy status to other drugs, medicaments and biological substances
CPT/HCPCS: 64490; 64491; J2250; J3010; 99152

== ENCOUNTER → 2019-01-03 | Outpatient (CLI) | payer OTHER ==
--- NOTE | 2019-01-03 12:36 | P.PAINPG ---
Subjective Progress Note Date: 01/03/19 This is follow-up visit for this 53 years old female with a chronic history of severe low back pain., She is diagnosed with lumbar spondylosis and sacroiliitis, previously would have been RFA of the sacroiliac joint, and also patient has severe neck pain previously we have done cervical epidural steroid injections in the beginning of 2019, patient reported that she get short-term benefit from it, currently she is complaining of severe localized pain in the cervical area and the patient is not related to the upper extremity and the pain increases with any neck movement, she denies any motor or sensory deficit she denies any fever or night sweats and no change in the bowel movements or urination a few weeks ago we did diagnostic medial branch block cervical area C3, C4, C5 ,Bilateral She had significant improvement of her neck pain after the diagnostic medial branch block, and she is here today for follow-up visit and evaluation, She reported that her pain before the diagnostic block on 10/26- befor the block droped to 04/28 Objective - Vital Signs Vital signs: Vital Signs Temp Pulse 64 01/03/19 11:58 Resp 16 01/03/19 11:58 BP 157/76 01/03/19 11:58 Pulse Ox 97 01/03/19 11:58 Intake & Output 01/02/19 01/03/19 01/03/19 18:59 06:59 18:59 Weight 77.111 kg - Exam Physical Examinations : -Constitutiona : Cooperative , not in acute distress . -HEENT : nech : supple , no Lymphadenopathy , normal thyroid size . eyes : no ptosis , no icterus, no photo phobia . - neurologic : Cranial nerve II to XII intact , no focal neurological deffecit . -psychatric : alert , oriented X 3 , appropriate affect , intact judgment and insight . . - musculoskeltal : Cervical Spine motor stregnth in the deltoid and biceps, normal right side , normal Left side motor stregnth biceps and the wrist extensors normal right side ,normal left side . motor stregnth in the triceps muscle . normal Right side , normal Left side deep tendon reflexes normal at the biceps , normal at Brachioradialis , normal at triceps. cervical facet loading test: Positive Bilaterally Lumber spine moter stegnth lower extremities ,thigh and legs 5/5 Right side , 5/5 Left side Assessment and Plan Plan: Assessment and plan=1-lumbar spondylosis 2-cervical spondylosis with cervical facet arthropathy, the patient had good results after the first diagnostic medial branch block Patient will be scheduled to have repeat diagnostic medial branch block cervical area at C3, C4, C5, bilaterally PQRS Measure Charge Sheet Measure #130: Documentation of Current Meds in Medical Chart: Patient's medications documented in chart Measure #226: Tobacco Use: Screen & Cessation Intervention: Pt screened for tobacco use AND intervention given Measure #111: Pneumonia Vaccination: Pneumococcal vaccine administered or previously received Measure #47: Advance Care Plan: Advance care planning discussed & documented, pt chose/unable to give Measure #412: Opioid Treatment Agreement: No documentation of signed opioid treatment agreement Measure #408: Opioid Therapy Follow-up Evaluation: Patient had NO f/u eval minimum every 3 months during opioid therapy Measure #317: Preventitive Care & Scrn High Bld Press & F/U: Normal blood pressure, f/u not required Measure #128: Body Mass Index (BMI) Screening & Follow-up: BMI documented ABOVE normal parameters - f/u documented Measure #131: Pain Assessment & Follow-up: Pain positive & plan documented, Follow-up scheduled Measure #431: Unhealthy Alcohol Use Preventative Care & Scrn: Patient not identified as an unhealthy alcohol user PQRS Narrative: Smoking Status Former smoker Blood Pressure 157/76 Pain Intensity [None] 0 Scale Used Numeric (1 - 10) Hx Alcohol Use (MH) Yes: 1 daily Home Medications: Ambulatory Orders Cyanocobalamin [Vitamin B-12 Injection] 1,000 mcg SQ QMONTH 03/18/18 DULoxetine HCL [Cymbalta] 30 mg PO HS 03/18/18 Ergocalciferol (Vitamin D2) [Drisdol] 50,000 unit PO FR 03/18/18 Fluocinonide 0.05% [Lidex 0.05% cream] 15 applic TOPICAL DAILY PRN 03/18/18 Ibuprofen [Motrin] 600 mg PO TID PRN 03/18/18 Lidocaine 5% Patch [Lidoderm 5% Patch] 1 patch TOPICAL DAILY PRN 03/18/18 Nadolol [Corgard] 20 mg PO HS 09/06/18 Controlled Substance Measures - Controlled Substance Measures Is patient prescribed a controlled substance at discharge?: No
[2019-01-03 14:07] VITALS: BP 157/76; PULSE 64; RESP 16
== END ==
LOC: PNWHC3 11:29
PROVIDERS: ATTEND Specialist
DX: M47.816 Spondylosis without myelopathy or radiculopathy, lumbar region (principal); M47.812 Spondylosis without myelopathy or radiculopathy, cervical region; M46.96 Unspecified inflammatory spondylopathy, lumbar region; Z87.891 Personal history of nicotine dependence; Z79.899 Other long term (current) drug therapy; Z79.1 Long term (current) use of non-steroidal anti-inflammatories (NSAID)
CPT/HCPCS: 99211

== ENCOUNTER 2019-01-11 07:09 | Day surgery (SDC) | payer OTHER ==
[2019-01-10 08:30] VITALS: BMI 27.4
[2019-01-11 07:25] VITALS: TEMP 97.7
[2019-01-11] MEDS ORDERED: ALPRAZolam 0.5 MG TAB PO ONE (07:34)
[2019-01-11] MEDS ORDERED: LIDOCAINE 1% 20 ML VIAL (10MG/ML) FOR IV START INTRADERMA ONE (07:40)
--- NOTE | 2019-01-11 08:38 | P.PCN ---
Date of Procedure: 01/11/19 Procedure(s) Performed: PREOPERATIVE DIAGNOSIS: Cervical Spondylosis with Facet Arthropathy.without myelopathy POSTOPERATIVE DIAGNOSIS: Cervical Spondylosis, Facet Arthropathy. Without myelopathy PROCEDURES: Bilateral Diagnostic C3, C4, C5 medial branch blocks for facets C3-4 and C4-5, with fluoroscopic guidance ANESTHESIA: Local with 1% lidocaine; oral sedation with 0.5 mg of Xanax, IV sedation with 2 mg Versed, sedation time 22 minutes Fluoroscopy was used for the procedure and images were saved in the radiology portion of the chart. EBL: Minimal PROCEDURE INDICATION: The patient with neck pain secondary to cervical arthropathy unresponsive to more conservative treatments. PROCEDURE DESCRIPTION / TECHNIQUE: The patient was seen and identified in the preoperative area. Risks, benefits, complications, and alternatives were discussed with the patient, the patient agreed to proceed with the procedure and signed the consent. IV was started. Vital signs remained stable throughout the procedure. Patient was taken to the OR and time out was completed. The patient was placed in the prone position on the procedure table. The cervical area was prepped and draped in the usual sterile fashion. A timeout was performed. Vital signs were closely monitored during the procedure. Conscious sedation was used during the procedure to decrease patients anxiety. Using cross-table lateral fluoroscopy, the centroid of the trapezoid of the first level was identified, marked, and localized with 1% lidocaine 0.2 ml at each level for skin and subcutaneous infiltration . Subsequently, a 25 G 3.5" Quinke spinal needle was advanced guided by fluoroscopy to the centroid of the trapezoid at each level . [place] tip position was confirmed using lateral fluoroscopy.0.2 mL of Isovue-200 was injected at each level, revealing no intravascular uptake. Subsequently, 0.5 mL of 2% lidocaine was injected at each level. COMPLICATIONS: No acute complications. DISPOSITION / PLANS: The patient was placed in a supine position and transferred to the recovery area in a stable condition for observation and was discharged from the recovery room after meeting discharge criteria. Home discharge instructions given to the patient by the staff. The patient will follow up in clinic in 2 weeks.
[2019-01-11] MEDS ORDERED: IV FLUID CONTINUATION 1,000 ML IV ONE ×2 (08:46)
[2019-01-11 08:49] VITALS: RESP 18
[2019-01-11 09:01] VITALS: BP 111/60; PULSE 72
--- NOTE | 2019-01-11 10:05 | FL ---
Fluoroscopy HISTORY: Pain 8 seconds fluoroscopy time supplied to the referring clinician. 2 intraoperative C-arm images docume nt the procedure. See dictated report from anesthesia.
== END 2019-01-11 09:20 | disposition home or self-care (01) ==
LOC: ORPAIN 07:09
PROVIDERS: ATTEND Anesthesiology
DX: G89.29 Other chronic pain (principal); M47.812 Spondylosis without myelopathy or radiculopathy, cervical region; M47.896 Other spondylosis, lumbar region; Z87.891 Personal history of nicotine dependence; Z79.891 Long term (current) use of opiate analgesic; Z79.899 Other long term (current) drug therapy
CPT/HCPCS: 64490; 64491; J2250; Q9966; 99152

== ENCOUNTER → 2019-02-09 | Outpatient (CLI) | payer OTHER ==
[2019-02-09 13:36] VITALS: BP 140/97; PULSE 66; RESP 16
--- NOTE | 2019-02-09 14:12 | P.PAINPG ---
Subjective Progress Note Date: 02/09/19 This is follow-up visit for this 54 years old female with a chronic history of severe low back pain., She is diagnosed with cervical and lumbar spondylosis and sacroiliitis, recently we have done diagnostic medial branch block cervical area bilaterally C3 , C4, C5,She had significant improvement of her neck pain after the diagnostic medial branch block ,She reported that her pain before the diagnostic block on 10/26- befor the block droped to 1/10, and the second day cannot think of what her pain level was 4/10 dropped to 0/10 after the diagnostic, and she'll get 2 positive results Objective - Vital Signs Vital signs: Vital Signs Temp Pulse 66 02/09/19 13:29 Resp 16 02/09/19 13:29 BP 140/97 02/09/19 13:29 Pulse Ox 98 02/09/19 13:29 - Exam Physical Examinations : -Constitutiona : Cooperative , not in acute distress . -HEENT : nech : supple , no Lymphadenopathy , normal thyroid size . eyes : no ptosis , no icterus, no photophobia . ENT : normal of hearing , normal oropharynx , no Thrush . - Respiratory : Chest clear to auscultations Bilaterally , no wheezing , no Rhonchi . - Cardiovascula : regular rate and rhythem , S1 , S2 , no S3 , no S4. - Gastrointestina : abdomen soft no tenderness , bowel sounds , no organomegally . - Genitourinary : Defferred . - neurologic : Cranial nerve II to XII intact , no focal neurological deffecit . -psychatric : alert , oriented X 3 , appropriate affect , intact judgment and insight . -Lymphatic : no Lymphadenopathy . - musculoskeltal : Cervical Spine motor stregnth in the deltoid and biceps, normal right side , normal Left side motor stregnth biceps and the wrist extensors normal right side ,normal left side . motor stregnth in the triceps muscle . normal Right side , normal Left side deep tendon reflexes normal at the biceps , normal at Brachioradialis , normal at triceps. cervical facet loading test: Positive Bilaterally Spurling test positive bilaterally. Neck distraction test positive bilatera lly. Ruy sign positive bilaterally. Lumber spine moter stegnth lower extremities ,thigh and legs 5/5 Right side , 5/5 Left side Assessment and Plan Plan: Assessment and plan=1-neck pain is secondary to cervical spondylosis with cervical facet arthropathy. she had a positive result after the diagnostic medial branch block cervical area she will be good candidate to have RFA of the medial branch cervical area we will start with the left side first then we'll do the right side later on (C3, C4, C5 ) Time with Patient: Less than 30 PQRS Measure Charge Sheet Measure #130: Documentation of Current Meds in Medical Chart: Patient's medications documented in chart Measure #226: Tobacco Use: Screen & Cessation Intervention: Pt not a tobacco user Measure #111: Pneumonia Vaccination: Pneumococcal vaccine administered or previously received Measure #47: Advance Care Plan: Advance care planning discussed & documented, pt chose/unable to give Measure #412: Opioid Treatment Agreement: No documentation of signed opioid treatment agreement Measure #408: Opioid Therapy Follow-up Evaluation: Patient had NO f/u eval minimum every 3 months during opioid therapy Measure #317: Preventitive Care & Scrn High Bld Press & F/U: Pre-hypertensive or hypertensive BP documented, pt will f/u with PCP Measure #128: Body Mass Index (BMI) Screening & Follow-up: BMI documented ABOVE normal parameters - f/u documented Measure #131: Pain Assessment & Follow-up: Pain positive & plan documented, Follow-up scheduled Measure #431: Unhealthy Alcohol Use Preventative Care & Scrn: Patient not identified as an unhealthy alcohol user PQRS Narrative: Smoking Status Former smoker Blood Pressure 140/97 Pain Intensity [Neck] 5 Scale Used Numeric (1 - 10) Hx Alcohol Use (MH) Yes: 1 daily Home Medications: Ambulatory Orders Cyanocobalamin [Vitamin B-12 Injection] 1,000 mcg SQ QMONTH 03/18/18 Ergocalciferol (Vitamin D2) [Drisdol] 50,000 unit PO FR 03/18/18 Fluocinonide 0.05% [Lidex 0.05% cream] 15 applic TOPICAL DAILY PRN 03/18/18 Ibuprofen [Motrin] 600 mg PO TID PRN 03/18/18 Lidocaine 5% Patch [Lidoderm 5% Patch] 1 patch TOPICAL DAILY PRN 03/18/18 Nadolol [Corgard] 20 mg PO HS 09/06/18 Atorvastatin [Lipitor] 40 mg PO HS 01/10/19 DULoxetine HCL [Cymbalta] 60 mg PO HS 01/10/19 Controlled Substance Measures - Controlled Substance Measures Is patient prescribed a controlled substance at discharge?: No
== END ==
LOC: PNWHC3 12:47
PROVIDERS: ATTEND Specialist
DX: M47.812 Spondylosis without myelopathy or radiculopathy, cervical region (principal); M46.96 Unspecified inflammatory spondylopathy, lumbar region; Z87.891 Personal history of nicotine dependence; Z79.899 Other long term (current) drug therapy; Z79.1 Long term (current) use of non-steroidal anti-inflammatories (NSAID)
CPT/HCPCS: 99211

== ENCOUNTER 2019-02-22 08:23 | Day surgery (SDC) | payer OTHER ==
[2019-02-20 11:14] VITALS: BMI 27.4
[2019-02-22 09:11] VITALS: RESP 16; TEMP 97.1
--- NOTE | 2019-02-22 10:11 | P.PCN ---
Date of Procedure: 02/22/19 Procedure(s) Performed: PREOPERATIVE DIAGNOSIS: Cervical spondylosis POSTOPERATIVE DIAGNOSIS: Same PROCEDURES: Left C3, C4, C5 Radiofrequency thermocoagulation, with fluoroscopic guidance PHYSICIAN: Cate Hartman MD. ANESTHESIA: Moderate sedation with intravenous versed 2 mg and fentanyl 150 mcg and local infiltration with lidocaine 1% 4 ml EBL: Minimal PROCEDURE INDICATION: Cervical spondylosis, confirmed by 2 medial branch blocks PROCEDURE DESCRIPTION / TECHNIQUE: The patient was seen and identified in the preoperative area. Risks, benefits, complications, including but not limited to risk of infection ,bleeding , allergic reactions to the medications, incomplete pain relief, nerve damage and headache Alternatives were discussed with the patient, the patient agreed to proceed with the procedure and signed the consent. IV was started. The operative site was marked. Patient was taken to the OR and time out was completed. The patient was placed in the prone position on the procedure table. The lumber area was prepped and draped in the usual sterile fashion. . Vital signs were closely monitored during the procedure .IV sedation was used during the procedure to decrease patients anxiety. Using AP and then oblique fluoroscopy, the articular waist of the corresponding cervical vertebral bodies for the above-mentioned levels were identified, marked, and localized with 1% lidocaine. Subsequently, a 18 [id number] radiofrequency cannula with a 10-mm active tip was advanced guided by fluoroscopy to the midpoint of the trapezoid formed on the lateral view of the cervical vertebral bodies at each site then underwent motor testing at 2.5 Hz and 0 to 3 volt with local stimulation, but no radicular symptoms. Then the sites underwent radiofrequency thermocoagulation at 80 degrees celsius for 90 seconds after injecting 0.5 ml of PF lidocaine 4%. After the t hermocoagulation done , 1 ml of the block solution containing depomedrol 40 mg and 4 ml of maraine 0.5% was injected at each levels after negative aspiration of CSF and blood and with no paresthesias. Cannulas were retracted. Images were saved to radiology. At the end of the procedure, the skin was cleansed and bandages were applied. COMPLICATIONS: No acute complications. DISPOSITION / PLANS: The patient was placed in a supine position and transferred to the recovery area in a stable condition for observation and was discharged from the recovery room after meeting discharge criteria. Home discharge instructions given to the patient by the staff. She will follow-up for right-sided cervical RFA.
[2019-02-22] MEDS ORDERED: IV FLUID CONTINUATION 700 ML IV ONE (10:14)
--- NOTE | 2019-02-22 10:21 | FL ---
EXAMINATION TYPE: FL guided pain mgmt statistic DATE OF EXAM: 02/22/2019 COMPARISON: NONE HISTORY: Needle placement. Neck pain TECHNIQUE: Fluoroscopy. FINDINGS: Fluoroscopic guidance was provided during procedure performed by Dr. Hartman. A total of 16 seconds of fluoroscopic time was utilized during the procedure and 2 spot images was acquired demo nstrating multiple level localization of the cervical spine. IMPRESSION: As Above.
[2019-02-22 10:38] VITALS: BP 122/81; PULSE 69
== END 2019-02-22 10:47 | disposition home or self-care (01) ==
LOC: ORPAIN 08:23
PROVIDERS: ATTEND Student in an Organized Health Care Education/Training Program
DX: M47.812 Spondylosis without myelopathy or radiculopathy, cervical region (principal); Z78.0 Asymptomatic menopausal state; Z88.8 Allergy status to other drugs, medicaments and biological substances
CPT/HCPCS: 64633; 64634; J2250; J3010; 99152

== ENCOUNTER 2019-03-08 07:05 | Day surgery (SDC) | payer OTHER ==
[2019-03-06 14:38] VITALS: BMI 27.4
[2019-03-08] MEDS ORDERED: LACTATED RINGERS 1,000 ML IV SCH (07:14)
[2019-03-08 08:31] VITALS: RESP 16; TEMP 97.6
[2019-03-08] MEDS ORDERED: LIDOCAINE 1% 20 ML VIAL (10MG/ML) FOR IV START INTRADERMA ONE (08:37)
[2019-03-08] MEDS ORDERED: LACTATED RINGERS 1,000 ML IV ONE (09:37)
--- NOTE | 2019-03-08 09:44 | P.PCN ---
Date of Procedure: 03/08/19 Procedure(s) Performed: PREOPERATIVE DIAGNOSIS: Cervical spondylosis POSTOPERATIVE DIAGNOSIS: Same PROCEDURES: Radiofrequency thermocoagulation of the C3, C4, C5 medial branches with fluoroscopic guidance on the right side for facets C3-4, C4-5 SURGEON: Milana Adams M.D. ANESTHESIA: Moderate sedation with intravenous versed and fentanyl and local infiltration with lidocaine 1% 5 ml , sedation time 19 minutes Fluoroscopy was used for the procedure and fluoroscopic images were saved to the radiology portion of patient's chart. EBL: Minimal PROCEDURE INDICATION: The patient with low back pain secondary to cervical facet arthropathy who had more than 50% relief of pain with previous diagnostic cervical medial branch block. PROCEDURE DESCRIPTION / TECHNIQUE: The patient was seen and identified in the preoperative area. Risks, benefits, complications, including but not limited to risk of infection ,bleeding , allergic reactions to the medications and incomplete pain relief , and alternatives were discussed with the patient, the patient agreed to proceed with the procedure and signed the consent. IV was started. The operative site was marked. Patient was taken to the OR and time out was completed. The patient was placed in the prone position on the procedure table. The cervical area was prepped and draped in the usual sterile fashion. . Vital signs were closely monitored during the procedure .IV sedation was used during the procedure to decrease patients anxiety. Using AP and lateral fluoroscopy, the waist corresponding to the connection between the superior and transverse articular processes of the above-mentioned levels were identified, marked, and localized with 1% lidocaine. Subsequently, an 18 [id number] radiofrequency cannula with a 10-mm active tip was advanced guided by fluoroscopy to the midpoint of the centroid on the lateral view of the corresponding cervical vertebral bodies at each site then underwent motor testing at 2.5 Hz and 0 to 3 volt with local stimulation, but no radicular symptoms down the arms. Then the sites underwent radiofrequency thermocoagulation at 80 degrees celsius for 90 seconds after injecting 0.5 ml of PF lidocaine 4% at each site. A second round of radiofrequency ablation was performed after pulling each needle back by 1 mm. Cannulas were removed, the skin was cleansed and bandages were applied. COMPLICATIONS: No acute complications. DISPOSITION / PLANS: The patient was placed in a supine position and t ransferred to the recovery area in a stable condition for observation and was discharged from the recovery room after meeting discharge criteria. Home discharge instructions given to the patient by the staff. The patient will follow up in clinic in 2-4 weeks.
[2019-03-08 09:51] VITALS: BP 138/86; PULSE 82
--- NOTE | 2019-03-08 10:20 | FL ---
EXAMINATION TYPE: FL guided pain mgmt statistic DATE OF EXAM: 03/08/2019 CLINICAL HISTORY: Neck pain. TECHNIQUE: Fluoroscopy. COMPARISON: None. FINDINGS: Fluoroscopic guidance was provided during pain relief procedure performed by Dr. Adams. A t otal of 8 seconds of fluoroscopic time was utilized during the procedure and 3 spot images are acquir ed. Images acquired shows needle localization at multiple levels in the cervical spine. IMPRESSION: As Above.
== END 2019-03-08 10:04 | disposition home or self-care (01) ==
LOC: ORPAIN 07:05
PROVIDERS: ATTEND Anesthesiology
DX: G89.29 Other chronic pain (principal); M47.812 Spondylosis without myelopathy or radiculopathy, cervical region; M47.816 Spondylosis without myelopathy or radiculopathy, lumbar region; M46.1 Sacroiliitis, not elsewhere classified; Z88.8 Allergy status to other drugs, medicaments and biological substances; Z78.0 Asymptomatic menopausal state; Z87.891 Personal history of nicotine dependence; Z79.899 Other long term (current) drug therapy
CPT/HCPCS: 64633; 64634; J2250; J3010; 99152

== ENCOUNTER → 2019-04-06 | Outpatient (CLI) | payer OTHER ==
[2019-04-06 12:28] VITALS: BP 124/86; PULSE 71; RESP 16
--- NOTE | 2019-04-11 10:57 | P.PAINPG ---
Subjective Progress Note Date: 04/06/19 This is a follow-up visit for this 54 years old female with a chronic history of severe neck and low back pain., She is diagnosed with cervical and lumbar spondylosis and sacroiliitis, recently we have done radiofrequency ablation of cervical area bilaterally C3 , C4, C5, She returns for followup and reports significant improvement of her neck pain, rated as 0-2/10. She reports over 90% improvement in neck pain. She continues to use motrin QHS for pain, denies side effects. Review of systems is negative for chest pain, shortness of breath, new onset weakness, numbness/tingling, abdominal pain, malaise, fever, chills, homicidal or suicidal ideation, or bowel or bladder incontinence. She reports night sweats. She also has long standing numbness in b/l lower extremities, however this has improved since her lumbar procedures. Objective Vitals :Reviewed in EMR PHYSICAL EXAMINATION: GENERAL: Well appearing, in no acute distress PSYCH: Mood and affect is appropriate. Awake, alert, and oriented SKIN: Skin color, texture, turgor normal, no rashes or lesions HEENT: Normocephalic, atraumatic. EOM intact CV: No pedal edema RESP: Respirations are unlabored GI: Abdomen nondistended MUSCULOSKELETAL: Bilateral upper and lower extremity strength is normal and symmetric. No atrophy or tone abnormalities are noted. Neck: mild tenderness to palpation over the cervical paraspinous muscles, more on right. No obvious deformity or signs of trauma. Normal cervical lordotic curve and normal cervical spine range of motion Extremities: Peripheral joint ROM is full and pain free without obvious instability or laxity in all four extremities. No edema or skin discolorations n oted. Gait: Gait is normal NEUR: Bilateral upper extremity coordination and muscle stretch reflexes are physiologic and symmetric.No loss of sensation is noted. Cranial nerves are grossly intact. Assessment and Plan Plan: Assessment and plan=1-neck pain is secondary to cervical spondylosis with cervical facet arthropathy. much improved after RFA of the (C3, C4, C5 ) medial branches Referral given for physical therapy for neck exercises Handout of low back exercises given to patient. Followup: PRN Time with Patient: Less than 30 PQRS Measure Charge Sheet Measure #130: Documentation of Current Meds in Medical Chart: Patient's medications documented in chart Measure #226: Tobacco Use: Screen & Cessation Intervention: Pt not a tobacco user Measure #111: Pneumonia Vaccination: Pneumococcal vaccine administered or previously received Measure #47: Advance Care Plan: Advance care planning discussed & documented, pt chose/unable to give Measure #412: Opioid Treatment Agreement: No documentation of signed opioid treatment agreement Measure #408: Opioid Therapy Follow-up Evaluation: Patient had NO f/u eval minimum every 3 months during opioid therapy Measure #317: Preventitive Care & Scrn High Bld Press & F/U: blood pressure within normal limits Measure #128: Body Mass Index (BMI) Screening & Follow-up: BMI documented ABOVE normal parameters - f/u documented Measure #131: Pain Assessment & Follow-up: Pain positive & plan documented, Follow-up scheduled Measure #431: Unhealthy Alcohol Use Preventative Care & Scrn: Patient not identified as an unhealthy alcohol user Objective - Vital Signs Vital signs: Vital Signs Temp Pulse 71 04/06/19 12:20 Resp 16 04/06/19 12:20 BP 124/86 04/06/19 12:20 Pulse Ox PQRS Measure Charge Sheet PQRS Narrative: Smoking Status Former smoker Blood Pressure 124/86 Pain Intensity [Neck] 2 Scale Used Numeric (1 - 10) Hx Alcohol Use (MH) Yes: 1 daily Home Medications: Ambulatory Orders Cyanocobalamin [Vitamin B-12 Injection] 1,000 mcg SQ QMONTH 03/18/18 Ergocalciferol (Vitamin D2) [Drisdol] 50,000 unit PO FR 03/18/18 Ibuprofen [Motrin] 600 mg PO TID PRN 03/18/18 Lidocaine 5% Patch [Lidoderm 5% Patch] 1 patch TOPICAL DAILY PRN 03/18/18 Nadolol [Corgard] 20 mg PO HS 09/06/18 Atorvastatin [Lipitor] 40 mg PO HS 01/10/19 DULoxetine HCL [Cymbalta] 60 mg PO HS 01/10/19 Controlled Substance Measures - Controlled Substance Measures Is patient prescribed a controlled substance at discharge?: No
== END | disposition home or self-care (01) ==
LOC: PNWHC3 12:03
PROVIDERS: ATTEND Anesthesiology
DX: M47.812 Spondylosis without myelopathy or radiculopathy, cervical region (principal); M46.92 Unspecified inflammatory spondylopathy, cervical region; Z98.890 Other specified postprocedural states; Z87.891 Personal history of nicotine dependence; Z79.1 Long term (current) use of non-steroidal anti-inflammatories (NSAID); Z79.899 Other long term (current) drug therapy
CPT/HCPCS: 99211

== ENCOUNTER → 2019-11-08 | Outpatient (CLI) | payer OTHER ==
[2019-11-08 13:05] VITALS: BP 121/86; PULSE 79; RESP 18
--- NOTE | 2019-11-08 13:42 | P.PAINPG ---
Subjective Progress Note Date: 11/08/19 This is a follow-up visit for this 54 years old female with a chronic history of severe neck and low back pain., She is diagnosed with cervical and lumbar spondylosis and sacroiliitis, she was last seen in our clinic in March 2019, prior to that we have done radiofrequency ablation of cervical area bilaterally C3 , C4, C5, She returns for followup. She reports ongoing good relief from this procedure. She has performed cervical PT with good benefit. Today, her primary complaint is low back pain, worse on the right side, radiating to right lower extremityposterior thigh up to the calf and ankle. She reports numbness in the right posterior leg as well as bilateral subjective weakness. Pain is rated as 4/10, described as constant, pinching pain. Pain is worse with activity and moving, better with sitting and inactivity. She is taking Motrin for pain control, she is not getting any significant benefit from this. She states that this pain is similar to her prior low back pain, and she has had excellent benefit from prior SI joint radiofrequency ablation, last done approximately one year ago. In fact, her pain relief lasted approximately 10 months, and has just started to return in the last 1-2 months. Review of systems is negative for chest pain, shortness of breath, new onset weakness, numbness/tingling, abdominal pain, malaise, fever, chills, homicidal or suicidal ideation, or bowel or bladder incontinence. Objective Vitals :Reviewed in EMR PHYSICAL EXAMINATION: GENERAL: Well appearing, in no acute distress PSYCH: Mood and affect is appropriate. Awake, alert, and oriented SKIN: Skin color, texture, turgor normal, no rashes or lesions HEENT: Normocephalic, atraumatic. EOM intact CV: No pedal edema RESP: Respirations are unlabored GI: Abdomen nondistended MUSCULOSKELETAL: Bilateral lower extremity strength is normal and symmetric. No atrophy or tone abnormalities are noted. Lumbar spine: Mild tenderness to palpation of lumbar paraspinal musculature. Straight leg raise is negative bilaterally. SI joints: Bilateral tenderness to palpation of PSIS. Fauzia test positive on the right, Gaenslin's test positive on the right, sacral thrust positive bilaterally Extremities: Peripheral joint ROM is full and pain free without obvious i nstability or laxity in all four extremities. No edema or skin discolorations noted. Gait: Gait is normal NEUR: Bilateral lower extremity coordination and muscle stretch reflexes are physiologic and symmetric.No loss of sensation is noted. Cranial nerves are grossly intact. Assessment and Plan Plan: Assessment and plan=1-neck pain is secondary to cervical spondylosis with cervical facet arthropathy. much improved after RFA of the (C3, C4, C5 ) medial branches Bilateral SI joint dysfunction, which has responded well to prior SI joint radiofrequency ablation, with close to 100% pain relief lasting approximately 10 months. We will schedule repeat SI joint radiofrequency ablation, right side first Agent was counseled to take [id number] milligrams 3 times a day for pain PQRS Measure Charge Sheet Measure #130: Documentation of Current Meds in Medical Chart: Patient's medications documented in chart Measure #226: Tobacco Use: Screen & Cessation Intervention: Pt not a tobacco user Measure #111: Pneumonia Vaccination: Pneumococcal vaccine administered or previously received Measure #47: Advance Care Plan: Advance care planning discussed & documented, pt chose/unable to give Measure #412: Opioid Treatment Agreement: No documentation of signed opioid treatment agreement Measure #408: Opioid Therapy Follow-up Evaluation: Patient had NO f/u eval minimum every 3 months during opioid therapy Measure #317: Preventitive Care & Scrn High Bld Press & F/U: blood pressure within normal limits Measure #128: Body Mass Index (BMI) Screening & Follow-up: BMI documented within normal parameters Measure #131: Pain Assessment & Follow-up: Pain positive & plan documented, Follow-up scheduled Measure #431: Unhealthy Alcohol Use Preventative Care & Scrn: Patient not identified as an unhealthy alcohol user PQRS Measure Charge Sheet PQRS Narrative: Smoking Status Former smoker Pain Intensity [Back] 8 Hx Alcohol Use (MH) Yes: 1 daily Home Medications: Ambulatory Orders Cyanocobalamin [Vitamin B-12 Injection] 1,000 mcg SQ QMONTH 03/18/18 Ergocalciferol (Vitamin D2) [Drisdol] 50,000 unit PO FR 03/18/18 Ibuprofen [Motrin] 600 mg PO TID PRN 03/18/18 Lidocaine 5% Patch [Lidoderm 5% Patch] 1 patch TOPICAL DAILY PRN 03/18/18 Nadolol [Corgard] 20 mg PO HS 09/06/18 Atorvastatin [Lipitor] 40 mg PO HS 01/10/19 DULoxetine HCL [Cymbalta] 60 mg PO HS 01/10/19 Controlled Substance Measures - Controlled Substance Measures Is patient prescribed a controlled substance at discharge?: No
== END | disposition home or self-care (01) ==
LOC: PNWHC3 12:49
PROVIDERS: ATTEND Anesthesiology
DX: G89.29 Other chronic pain (principal); M47.812 Spondylosis without myelopathy or radiculopathy, cervical region; M47.816 Spondylosis without myelopathy or radiculopathy, lumbar region; M46.1 Sacroiliitis, not elsewhere classified; Z87.891 Personal history of nicotine dependence; Z98.890 Other specified postprocedural states
CPT/HCPCS: 99211

== ENCOUNTER 2019-12-05 06:07 | Day surgery (SDC) | payer OTHER ==
[2019-11-28 16:08] VITALS: BMI 27.4
[2019-12-05 06:59] VITALS: TEMP 98.2
[2019-12-05] MEDS ORDERED: LACTATED RINGERS 1,000 ML IV ONE (07:12)
[2019-12-05] MEDS ORDERED: fentaNYL (PF) 50 MCG/ML 2 ML AMP ONE (07:35)
[2019-12-05] MEDS ORDERED: MIDAZOLAM 2 MG/2 ML VIAL ONE (07:35)
[2019-12-05] MEDS ORDERED: LIDOCAINE 1% INJ 10MG/ML (20 ML MDV) ONE (07:35)
[2019-12-05] MEDS ORDERED: IV FLUID CONTINUATION 1,000 ML IV ONE (08:27)
[2019-12-05 08:30] VITALS: BP 142/70
[2019-12-05] MEDS ORDERED: LACTATED RINGERS 1,000 ML IV SCH (08:45)
[2019-12-05 08:48] VITALS: PULSE 72; RESP 14
--- NOTE | 2019-12-05 09:18 | FL ---
EXAMINATION TYPE: FL guided pain mgmt statistic DATE OF EXAM: 12/05/2019 CLINICAL HISTORY: Right sacroiliac joint pain. TECHNIQUE: Fluoroscopy. COMPARISON: None. FINDINGS: Fluoroscopic guidance was provided during pain relief procedure performed by Dr. Saldivar . A total of 34 seconds of fluoroscopic time was utilized during the procedure and 3 spot images are a cquired. Images acquired shows needle localization near lumbosacral junction and adjacent to the sac roiliac joint at multiple levels. IMPRESSION: As Above.
--- NOTE | 2019-12-05 13:59 | P.PCN ---
Date of Procedure: 12/05/19 Description of Procedure: Bipolar Radiofrequency Ablation of Dorasal Ramus of L5, Lateral Branches of S1 and S2 ATTENDING PHYSICIAN: Taran Saldivar MD PREOPERATIVE DIAGNOSIS: Right Sacroiliac Joint Pain/ sacroilitis POSTOPERATIVE DIAGNOSIS: same PROCEDURE PERFORMED: Monopolar Radiofrequency Ablation of Dorasal Ramus of L5, bipolar radiofrequency ablation of Lateral Branches of S1, S2 and S3 SIDE: Right IV SEDATION none ESTIMATED BLOOD LOSS: None FLUOROSCOPY WAS USED. Images were saved in the radiology portion of the chart. INDICATIONS FOR PROCEDURE: Patient has a clinical picture consistent with right sacroiliac joint dysfunction and has responded well to SI joint injections in the past, giving her almost 100% pain relief, but short-lived. PROCEDURE AND FINDINGS: The patient was greeted in the pre procedure holding area. The risk, benefits and alternatives to the procedure were again reviewed with the patient and written informed consent was placed in the chart. Prior to the procedure a time out was completed, verifying correct patient, procedure, site, positioning, and implants and/or special equipment. An IV line was placed. The patient was taken to the procedure room and positioned prone on the fluoroscopy table. Routine monitors were applied including EKG leads, blood pressure cuff, and pulse oximetry. The skin was prepped with chlorhexidine and draped in the usual sterile fashion. A fluoroscopic AP view was used to identify the sacral ala and the [] SI joint with the associated S1-S3 foramens medial to the SI joint line. A marker was used to shannen the sacral ala and the lateral aspects of the S1-S3 foramen. Law were made 1 cm apart to perform strip lesion. Then overlying skin and subcutaneous tissues were anesthetized using a 25-gauge 1-1/2-inch needle with 1% preservative free lidocaine for a total volume of 5 mls. Under AP and lateral fluorscopic views, 7 18 gauge 100 mm [employer] Bipolar RF needles with a 10 mm active tip were inserted at the L5 dorsal ramus and the lateral aspects of the S1, S2 and S3 foramens and advanced until it touched os. Confirmation of position was then made with a lateral fluoroscopic view to ensure that the tips were posterior to the posterior plate of the sacrum. Motor stimulation at 2 Hz and up to 2V was conducted between sequential probes. There was no observable motor movement in the lower extremities and the patient confirmed this by self-report. After satisfactory motor testing was completed at each level, approximately 0.5 mL of 4% Lidocaine was injected to anesthetize the radiofrequency ablation target. For the probe placed at L5 dorsal ramus, monopolar radiofrequency ablation was carried out at 90 for 150 seconds. Bipolar radiofrequency ablation was carried out at all other levels with a probe temperature set to 90C for 150 seconds. Following lesioning the needles were removed. The needle insertion site was dressed appropriately. The patient was taken to the recovery room where they were monitored for a brief period of time. They tolerated the procedure well and were discharged home in stable condition with post procedural instructions. Follow-up will be in clinic as needed COMPLICATIONS: None
== END 2019-12-05 08:58 ==
LOC: ORPAIN 06:07
PROVIDERS: ATTEND Anesthesiology
DX: M53.3 Sacrococcygeal disorders, not elsewhere classified (principal); M46.1 Sacroiliitis, not elsewhere classified; Z88.8 Allergy status to other drugs, medicaments and biological substances
CPT/HCPCS: 64640; 64625; J2250; J2001; J3010; 99152; 99153

== ENCOUNTER → 2020-03-04 | Outpatient (CLI) | payer OTHER | END | disposition home or self-care (01) | LOC: LABWHC1 12:32 | PROVIDERS: ATTEND Family Medicine | DX: Z20.828 Contact with and (suspected) exposure to other viral communicable diseases (principal) | CPT/HCPCS: U0003; C9803 ==

== ENCOUNTER → 2020-04-03 | Outpatient (CLI) | payer OTHER ==
[2020-04-03 09:17] VITALS: BP 137/83; PULSE 75; TEMP 97.6
--- NOTE | 2020-04-03 09:25 | P.PN ---
Subjective Progress Note Date: 04/03/20 This is follow-up visit for this 55 years old female with a chronic history of severe low back pain., She is diagnosed with cervical and lumbar spondylosis and sacroiliitis, one year ago we have done RFA medial branch block cervical area bilaterally C3 , C4, C5, She had significant improvement of her neck pain after the dthe RFA of the medial branch block , and the pain relief lasted more than one year, currently she is complaining of severe neck pain which is enclosed with any neck movement the pain is not radiated to the upper extremity, she denies any motor or sensory deficit Objective - Vital Signs Vital signs: Vital Signs Temp 97.6 F 04/03/20 09:12 Pulse 75 04/03/20 09:12 Resp 20 04/03/20 09:12 BP 137/83 04/03/20 09:12 Pulse Ox 96 04/03/20 09:12 - Exam -Constitutiona : Cooperative , not in acute distress . -HEENT : nech : supple , no Lymphadenopathy , normal thyroid size . eyes : no ptosis , no icterus, no photophobia . - neurologic : Cranial nerve II to XII intact , no focal neurological deffecit . -psychatric : alert , oriented X 3 , appropriate affect , intact judgment and insight . -Lymphatic : no Lymphadenopathy . - musculoskeltal : Cervical Spine motor stregnth in the deltoid and biceps, normal right side , normal Left side motor stregnth biceps and the wrist extensors normal right side ,normal left side . motor stregnth in the triceps muscle . normal Right side , normal Left side deep tendon reflexes normal at the biceps , normal at Brachioradialis , normal at triceps. cervical facet loading test: Positive Bilaterally Spurling test positive bilaterally. Neck distraction test positive bilaterally. Ruy sign positive bilaterally. Lumber spine moter stegnth lower extremities ,thigh and legs 5/5 Right side , 5/5 Left side Assessment and Plan Plan: Assessment and plan=1-neck pain is secondary to cervical spondylosis with cervical facet arthropathy. she had a excellent result after the RFA medial branch block cervical area , and the pain relief lasted more than a year She could benefit from repeat RFA of the medial branch (C3, C4, C5 ) bilateral Time with Patient: Less than 30 PQRS Measure Charge Sheet Measure #130: Documentation of Current Meds in Medical Chart: Patient's medications documented in chart Measure #226: Tobacco Use: Screen & Cessation Intervention: Pt not a tobacco user Measure #111: Pneumonia Vaccination: Pneumococcal vaccine administered or previously received Measure #47: Advance Care Plan: Advance care planning discussed & documented, pt chose/unable to give Measure #412: Opioid Treatment Agreement: No documentation of signed opioid treatment agreement Measure #408: Opioid Therapy Follow-up Evaluation: Patient had NO f/u eval minimum every 3 months during opioid therapy Measure #317: Preventitive Care & Scrn High Bld Press & F/U: 137/83, BP documented, pt will f/u with PCP Measure #128: Body Mass Index (BMI) Screening & Follow-up: BMI documented ABOVE normal parameters - f/u documented Measure #131: Pain Assessment & Follow-up: Pain positive & plan documented, Follow-up scheduled Measure #431: Unhealthy Alcohol Use Preventative Care & Scrn: Patient not identified as an unhealthy alcohol user PQRS Narrative: Time with Patient: Less than 30
[2020-04-03 09:37] VITALS: RESP 16
== END | disposition home or self-care (01) ==
LOC: PNWHC3 08:51
PROVIDERS: ATTEND Specialist
DX: M47.812 Spondylosis without myelopathy or radiculopathy, cervical region (principal)
CPT/HCPCS: 99211

== ENCOUNTER 2020-05-02 07:10 | Day surgery (SDC) | payer OTHER ==
[2020-04-26 13:12] VITALS: BMI 28.2
[2020-05-02] MEDS ORDERED: LIDOCAINE 1% (10MG/ML) FOR IV START INTRADERMA ONE (07:48)
[2020-05-02 07:51] VITALS: TEMP 97.8
[2020-05-02] MEDS ORDERED: ROPIVACAINE 5MG/ML 20ML VIAL ONE (08:12)
[2020-05-02] MEDS ORDERED: MIDAZOLAM 2 MG/2 ML VIAL ONE ×2 (08:12)
[2020-05-02] MEDS ORDERED: fentaNYL (PF) 50 MCG/ML 2 ML AMP ONE (08:12)
[2020-05-02] MEDS ORDERED: methylPREDNISolone ACETATE 40 MG/ML 1 ML VIAL ONE (08:12)
--- NOTE | 2020-05-02 08:52 | P.PCN ---
Date of Procedure: 05/02/20 Procedure(s) Performed: PREOPERATIVE DIAGNOSIS: Cervical spondylosis with Facet Arthropathy without myelopathy. POSTOPERATIVE DIAGNOSIS: Cervical spondylosis with Facet Arthropathy without myelopathy. PROCEDURES: Radiofrequency thermocoagulation, bilateral C3, C4, C5 medial branch with Fluroscopy Guidence(fluoroscopy was available in etiology department ) (to denervate the facet joint at bilateral C3- 4 , C4- 5 ) ANESTHESIA: moderate sedation with fentanyl 100 micrograms and Versed 3 mg EBL: Minimal PROCEDURE INDICATION: The patient with neck pain secondary to cervical arthropathy who had more than 50% relief of her pain with previous diagnostic cervical medial branch block. PROCEDURE DESCRIPTION / TECHNIQUE: The patient was seen and identified in the preoperative area. Risks, benefits, complications, and alternatives were discussed with the patient, the patient agreed to proceed with the procedure and signed the consent. IV was started. Vital signs remained stable throughout the procedure. Patient was taken to the OR and time out was completed. The patient was placed in the prone position on the procedure table. A pillow was placed under the patients chest to increase the cervical interlaminar space. The cervical area was prepped and draped in the usual sterile fashion. Critical pause was taken. Vital signs were closely monitored during the procedure. Conscious sedation was used during the procedure to decrease patients anxiety. Using cross-table lateral fluoroscopy, the centroid of the trapezoid of right C3, C4, C5, were identified, marked, and localized with 1% lidocaine. Subsequently, a 20 [id number] radiofrequency cannula with a 10-mm active tip was advanced guided by fluoroscopy to the centroid of the trapezoid of right C3, C4, C5, . Needle tip position was confirmed at the centroid of the trapezoids of right C3, C4, C5, with anteroposterior fluoroscopy. Each site then underwent sensory testing at 50 Hz and 0 to 1 volt and motor testing at 2 Hz and 0 to 3 volt with local stimulation, but no radicular symptoms down the arm. Thereafter each sites underwent radiofrequency thermocoagulation at 80 degrees celsius for 90 seconds after injecting 0.5 ml of PF Ropivacaine 0.5 %. After thermocoagulation, 1 ml of the block solution containing Depo-Medrol 40 mg and 5 mL of preservative-free normal saline was injected at the C3, C4, C5, levels after negative aspiration of CSF and blood and with no paresthesias. Cannulas were retracted while injecting lidocaine 1% until the needle is out. The exact same procedure was repeated for the left side and I did the left side RFA of C3 ,C4 ,and C5 then after all done ,the Skin was cleansed and bandages were applied. COMPLICATIONS: No acute complications. DISPOSITION / PLANS: The patient was placed in a supine position and transferred to the recovery area in a stable condition for observation and was discharged from the recovery room after meeting discharge criteria. Home discharge instructions given to the patient by the staff. The patient was reexamined prior to discharge. The patient will schedule a follow up in the clinic in 2-4 weeks.
[2020-05-02] MEDS ORDERED: IV FLUID CONTINUATION 1,000 ML IV ONE (08:56)
--- NOTE | 2020-05-02 08:57 | FL ---
EXAMINATION TYPE: FL guided pain mgmt statistic DATE OF EXAM: 05/02/2020 CLINICAL HISTORY: Neck pain. TECHNIQUE: Fluoroscopy. COMPARISON: None. FINDINGS: Fluoroscopic guidance was provided during pain relief procedure performed by Dr. Erazo . A total of 17 seconds of fluoroscopic time was utilized during the procedure and 4 spot images are acquired. Images acquired shows needle localization at multiple levels in the bilateral cervical sp ine. IMPRESSION: As Above.
[2020-05-02 09:08] VITALS: RESP 16
[2020-05-02 09:15] VITALS: BP 127/81; PULSE 51
== END 2020-05-02 09:36 | disposition home or self-care (01) ==
LOC: ORPAIN 07:10
PROVIDERS: ATTEND Specialist
DX: M47.812 Spondylosis without myelopathy or radiculopathy, cervical region (principal); M50.30 Other cervical disc degeneration, unspecified cervical region; Z88.8 Allergy status to other drugs, medicaments and biological substances; Z98.51 Tubal ligation status; Z98.890 Other specified postprocedural states
CPT/HCPCS: 64633; 64634; J2250; J1030; J3010; J2795; 99152; 99153

== ENCOUNTER → 2020-05-29 | Outpatient (CLI) | payer OTHER ==
[2020-05-29 11:01] VITALS: BP 167/79; PULSE 79; RESP 18; TEMP 97.7
--- NOTE | 2020-05-29 11:19 | P.PN ---
Subjective Progress Note Date: 05/29/20 Carmen presents for follow-up today secondary to her cervical spine radio frequency ablation done recently. She reports she has about 100% relief from the procedure. She is also complaining right-sided low back pain. She has pain over the right SI joint where she's had this pain in the past. She describes the pain is the same as it was prior to the radiofrequency ablation done about 7 months ago. She feels that the pain is coming back now mostly after doing stationary bike exercises. She has been walking and participating in daily activity. She finds that the pain is an aching pain which is worse with her exercises. There is some radiation to the buttocks but nothing beyond that. There is no lower extremity weakness. There is no bowel or bladder incontinence. She denies any upper extremity weakness numbness or tingling. Objective - Vital Signs Vital signs: Vital Signs Temp 97.7 F 05/29/20 10:57 Pulse 79 05/29/20 10:57 Resp 18 05/29/20 10:57 BP 167/79 05/29/20 10:57 Pulse Ox 99 05/29/20 10:57 Intake & Output 05/28/20 05/29/20 05/29/20 18:59 06:59 18:59 Weight 81.647 kg - Exam General: Awake and alert oriented 3 no distress Respiratory exam: No audible wheezing no accessory muscle usage Cardiovascular exam: regular rate, palpable bilateral pulses, no lower extremity edema Abdominal exam: No distention nontender to palpation Cervical spine: Normal alignment, Spurling's negative, facet loading negative, Montessori Toddler Teacher strength is 5/5, juarez negative Lumbar spine: Loss of lumbar lordosis, normal alignment, tender to palpation over bilateral paraspinal muscles, facet loading is positive bilaterally. Straight leg raise is negative. Limited range of motion due to pain with flexion, extension and side bending. Sacroiliac joints: Right SI joint is tender to palpation with a positive Fauzia's and gains on test. Neuro exam: Normal sensation in bilateral upper extremities, deep tendon reflexes are 2+ bilateral upper extremities. Normal sensation in bilateral lower extremities. Deep tendon reflexes are 2+ in lower extremities Psych exam: Cooperative, appropriate mood Assessment and Plan Assessment: #1 sacroiliitis #2 cervical spondylosis without myelopathy #3 lumbar spondylosis without myelopathy Plan: At this point we will schedule patient for repeat of the right-sided lumbar radiofrequency ablation along with a sacroiliac joint innervation. L5-S1, S1 S2 S3. The patient would like to have it done with sedation. I have spent 35 minutes on patient care today. The time was used to review the medical records including relevant urine studies and Prescription history (MAPs), review of the available imaging, evaluation and examination of the patient, coordination of care with the medical staff and if applicable referring physicians, as well as creation of the medical record.
== END | disposition home or self-care (01) ==
LOC: PNWHC3 10:48
PROVIDERS: ATTEND Hospitalist
DX: M47.816 Spondylosis without myelopathy or radiculopathy, lumbar region (principal); M46.1 Sacroiliitis, not elsewhere classified; M47.812 Spondylosis without myelopathy or radiculopathy, cervical region
CPT/HCPCS: 99211

== ENCOUNTER 2020-06-14 11:10 | Day surgery (SDC) | payer OTHER ==
[2020-06-11 11:22] VITALS: BMI 29.0
[2020-06-14] MEDS ORDERED: LIDOCAINE 1% (10MG/ML) FOR IV START INTRADERMA ONE (11:40)
[2020-06-14 11:47] VITALS: TEMP 97
[2020-06-14] MEDS ORDERED: MIDAZOLAM 2 MG/2 ML VIAL ONE (11:47)
[2020-06-14] MEDS ORDERED: ROPIVACAINE 5MG/ML 20ML VIAL ONE (11:47)
[2020-06-14] MEDS ORDERED: fentaNYL (PF) 50 MCG/ML 2 ML AMP ONE (11:47)
[2020-06-14] MEDS ORDERED: LIDOCAINE 1% INJ 10MG/ML (20 ML MDV) ONE (11:47)
--- NOTE | 2020-06-14 12:14 | P.PCN ---
Date of Procedure: 06/14/20 Description of Procedure: PREOPERATIVE DIAGNOSIS: 1. Lumbosacral Spondylosis 2. sacroiliitis. POSTOPERATIVE DIAGNOSIS: 1-Lumbosacral spondylosis 2- sacroiliitis. Imaging: Fluoroscopy was used, images where saved to the medical record PROCEDURES: 1. Right radiofrequency thermocoagulation/ablation of the L5 dorsal ramus. 2. Right multi-site radiofrequency thermocoagulation/ablation of the S1, S2, and S3 lateral branchs. The procedure was performed using fluoroscopic guidance during needle placement to assure proper position and maximize safety. ANESTHESIA: Local anesthesia with IV sedation using Fentanyl and Versed INDICATION/MEDICAL NECESSITY: History of low back pain secondary left Lumbosacral Spondylosis and lumbosacral arthropathy unresponsive to more conservative treatments. The patient reported more than 50% relief of pain symptoms following 2 previous diagnostic blocks with ropivacaine. PROCEDURE DESCRIPTION: The patient was seen and identified in the preoperative area. Risks, benefits, complications, and alternatives were discussed with the patient. The patient agreed to proceed with the procedure and signed the consent. Vital signs were checked before and after the procedure and they remained stable. The patient was placed in the prone position on the procedure table and a pillow was placed under the abdomen to reduce lumbar lordosis. The lumbosacral area was prepped and draped in the usual sterile fashion. Critical pause was taken. L5 Dorsal Ramus RF: Using oblique fluoroscopy, the junction of the transverse process and the superior articular process of the left S1 vertebra, which correspond to the fluoroscopic image of the "eye of the Gian dog" was identified. Subsequently, a 10-cm 20-gauge radiofrequency cannula with a 10-mm active tip was advanced under fluoroscopic guidance until contact was made with periosteum. At this level, the Sensory testing of the L5 dorsal ramus was performed at 50 Hz and 0 to 1 volt with production of concordant pain starting at 0.5 volt. Motor stimulation was done at 2 Hz with stimulation of mulitifidus muscle contration at 1.5 volts. No radicular symptoms or paresthesias were produced during the testing. Subsequently, the L5 dorsal ramus was subjected to a radiofrequency ablation at a mode of 90 seconds at 80 degrees Celsius after negative motor and sensory testing and after injecting with a solution consisting of 0.5% ropivacaine was injected. S1, S3, and S3 Lateral Branch RF: The lateral margins of the left S1, S2, and S3 foramina were identified using AP fluoroscopy. Under fluoroscopic guidance, three 10-cm 20-gauge radiofrequency cannula with a 10-mm active tip were inserted at 8-10 mm peripheral to the posterior S1 foramen, at various locations using clock-face coordinates. The center of the clock was registered at the lateral margin of the foramen. The 2:30, 4:00, and 5:30 oclock positions were used. At this level, the sensory t esting of the S1 lateral branch was performed at 50 Hz and 0 to 1 volt at the three levels with production of concordant pain starting at 0.5 volt. Motor stimulation was done at 2 Hz. No radicular symptoms or paresthesias were produced during the testing. Subsequently, the S1 lateral branch was subjected to a radiofrequency ablation at a mode of 90 seconds at 80 degrees Celsius at the 3 levels after negative motor and sensory testing and after injecting a solution consisting of 0.5% ropivacaine 1 ml injected in each cannula. The same procedure was performed at the level of the S2 foramen. For the S3 foramen, only the 2:30 and 4:00 oclock positions were used. Sensory and motor testing followed by radiofrequency ablation were performed as described for the S1 and S2 foramina. The needle was withdrawn intact after each injection. COMPLICATIONS: The patient tolerated the procedure well without any acute complications. DISPOSTION/PLAN: The patient was taken to the recovery area after the procedure in a stable condition for observation. Patient was reexamined prior to discharge. Patient was observed for 30 minutes in the recovery area and was discharged home, accompanied by an adult, after meeting discharged criteria. Discharge instructions were give to the patient by the staff. Patient was specifically instructed not to drive today and to rest for the rest of the day. Patient will follow up as scheduled in the clinic.
[2020-06-14] MEDS ORDERED: IV FLUID CONTINUATION 1,000 ML IV ONE (12:16)
--- NOTE | 2020-06-14 12:27 | FL ---
Fluoroscopy INDICATION: Pain FINDINGS: Fluoroscopy time: 6 seconds. Images obtained: 3. IMPRESSIONS: 1. Documentation of fluoroscopy.
[2020-06-14 12:37] VITALS: BP 124/88; PULSE 73; RESP 18
== END 2020-06-14 12:50 | disposition home or self-care (01) ==
LOC: ORPAIN 11:10
PROVIDERS: ATTEND Hospitalist
DX: M47.817 Spondylosis without myelopathy or radiculopathy, lumbosacral region (principal); M46.1 Sacroiliitis, not elsewhere classified; I49.9 Cardiac arrhythmia, unspecified; I10 Essential (primary) hypertension; E78.5 Hyperlipidemia, unspecified; Z79.1 Long term (current) use of non-steroidal anti-inflammatories (NSAID); Z79.899 Other long term (current) drug therapy; Z88.8 Allergy status to other drugs, medicaments and biological substances
CPT/HCPCS: 64625; J2250; J2001; J3010; J2795; 64635; 64640

== ENCOUNTER → 2020-07-10 | Outpatient (CLI) | payer OTHER ==
[2020-07-10 10:13] VITALS: BP 158/91; PULSE 75; RESP 16; TEMP 98.3
--- NOTE | 2020-07-10 10:33 | P.PN ---
Subjective Progress Note Date: 07/10/20 This is a 55 years old female with a history of chronic severe neck pain and she is diagnosed with cervical spondylosis, and she had chronic severe low back pain she is diagnosed with lumbar spondylosis with lumbar facet arthropathy without myelopathy, and lumbar bulging disc disease, and sacroiliitis, most recently we did RFA of the sacroiliac joint, she reported that her pain in the buttock area improve significantly(completely gone), currently she is having some numbness and tingling sensation that radiated from the back towards the lower extremity bilaterally more prominent on the left side, he denies any motor or sensory deficit she denies any fever or night sweats and that is no change in the bowel movement or urination Objective - Vital Signs Vital signs: Vital Signs Temp 98.3 F 07/10/20 10:10 Pulse 75 07/10/20 10:10 Resp 16 07/10/20 10:10 BP 158/91 07/10/20 10:10 Pulse Ox 97 07/10/20 10:10 - Exam Physical Examinations : -Constitutiona : Cooperative , not in acute distress . -HEENT : nech : supple , no Lymphadenopathy , normal thyroid size . : eyes : no ptosis , no icterus, no photophobia . - neurologic : Cranial nerve II to XII intact , no focal neurological deffecit . -psychatric : alert , oriented X 3 , appropriate affect , intact judgment and insight . -Lymphatic : no Lymphadenopathy . - musculoskeltal : Cervical Spine motor stregnth in the deltoid and biceps, normal right side , normal Left side motor stregnth biceps and the wrist extensors normal right side ,normal left side . motor stregnth in the triceps muscle . normal Right side , normal Left side Lumber spine moter stegnth lower extremities ,thigh and legs 5/5 Right side , 5/5 Left side deep tendon reflexes : normal Knee Jerk , normal ankle Jerk lumber facet Loading Test =positive Right , positive Left Range of motion of the lumbar spine Flexion 30 degrees, extension 10 degrees strait leg raising test = positive at 45degree Fabere test= positive Right , and positive LT . minimal tenderness over the Sacroiliac joint on the Right , and Left sides MRI of the lumbar spine L3 4 L4 5 bulging disc disease Assessment and Plan Plan: Assessment and plan=1-lumbar radiculopathy. 2-lumbar degenerative disc disease. 3-sacroiliitis. 4-cervical spondylosis with cervical facet arthr opathy without myelopathy. Patient could benefit from lumbar epidural steroid injection at L4-L5 or at L3 4. - PQRS measures = - Patient's medications are documented in the chart. -Tobacco use is negative and counseling.Given. -Patient's has not received pneumococcal vaccine. -Advanced care planning discussed, patient not eligible. -Opiate contract not signed. -Pain positive and follow-up visit/procedure is scheduled. -Patient's blood pressure measured [ 158/91 ] , and documented in the record ,and patient will follow up with the primary care. -Patient's weight was measured and body mass index [ 27.4 ] above the normal limits and counseling was done. and patient instructed to follow-up with the primary care physician. -Patient was not identified as an unhealthy alcohol user Time with Patient: Less than 30
== END ==
LOC: PNWHC3 09:58
PROVIDERS: ATTEND Specialist
DX: M54.16 Radiculopathy, lumbar region (principal); M51.36 Other intervertebral disc degeneration, lumbar region; M46.1 Sacroiliitis, not elsewhere classified; M47.812 Spondylosis without myelopathy or radiculopathy, cervical region
CPT/HCPCS: 99211

== ENCOUNTER 2020-07-25 08:42 | Day surgery (SDC) | payer OTHER ==
[2020-07-22 10:06] VITALS: BMI 28.5
[2020-07-25 09:16] VITALS: TEMP 97
[2020-07-25] MEDS ORDERED: methylPREDNISolone ACETATE 40 MG/ML 1 ML VIAL ONE (10:00)
[2020-07-25] MEDS ORDERED: IOPAMIDOL M200 10 ML VIAL ONE (10:00)
[2020-07-25] MEDS ORDERED: MIDAZOLAM 2 MG/2 ML VIAL ONE (10:00)
[2020-07-25] MEDS ORDERED: fentaNYL (PF) 50 MCG/ML 2 ML AMP ONE (10:00)
--- NOTE | 2020-07-25 10:12 | P.PCN ---
Date of Procedure: 07/25/20 Procedure(s) Performed: PREOPERATIVE DIAGNOSIS: 1- Lumbar Degenerative Disc Diseases. POSTOPERATIVE DIAGNOSIS: Same as preop diagnosis. PROCEDURE 1. Lumbar epidural steroid injection under fluoroscopic guidance at the L4-5 level. (Fluoroscopy imaging was available in radiology department) 2. Lumbar epidurogram. ANESTHESIA: Local with 1% lidocaine 3 ml and , moderate sedation with intravenous Versed 2 mg ,and fentanyle 100 Mcg EBL: Minimal PROCEDURE INDICATION: The patient with low back pain and radiculitis symptoms unresponsive to conservative treatment. Fluoroscopy was used to optimize visualization of the needle placement and to maximize safety. PROCEDURE DESCRIPTION / TECHNIQUE: The patient was seen and identified in the preoperative area. Risks, benefits, complications including but not limited to infections ,bleeding ,allergic reaction to the medications ,nerve damage and not complete pain releife , and alternatives were discussed with the patient. The patient agreed to proceed with the procedure and signed the consent. IV was started, and vital signs were stable. Patient was taken to the OR and time out was completed. The patient was placed in the prone position on procedure table and a pillow was placed under the abdomen to reduce lumbar lordosis. The lumbosacral area was prepped and draped in the usual sterile fashion.ere closely monitored during the procedure. Conscious sedation was used during the procedure to decrease patients anxiety. Vital signs was monitered during the entire procedure. Using anterior-posterior fluoroscopy, the L4-5 interlaminar space was identified and the skin over this site was marked and then infiltrated with 1% lidocaine subcutaneously. Subsequently, a 20-gauge Tuohy epidural needle was inserted and advanced toward the epidural space using the ``Loss of resistance technique and guided by AP and lateral fluoroscopy. The correct needle position in the epidural space was verified with the injection of 2 mL of the water soluble contrast dye Isovue 200 contrast and observing an excellent epidurogram with the epidural spread of the dye, after negative aspiration for blood and CSF and in the absence of paresthesias. Again after negative aspiration, a 6 ml mixture containing 80 mg of Depo-medrol , and 2 ml of preservative free Normal Saline, and 2 ml of preservative free lidocaine 1% solution was injected and a washout of epidurogram was seen. Needle was withdrawn intact, skin was cleansed, and bandages were applied. COMPLICATIONS: None DISPOSITION / PLANS: The patient was placed in a supine position and transferred to the recovery area in a stable condition for observation. There was no evidence of lower extremity motor or sensory deficit after the procedure. Patient was discharged from the recovery room after meeting discharge criteria. Home discharge instructions were given to the patient by the staff. The patient was reexamined prior to discharge. The patient will schedule a follow up in the clinic in 2-4 weeks. note= patient had multiple PVCs 2-3/ per minutes , she was hemodynamically stable the whole time, patient was instructed to follow up with her retail personal banker for evaluation JUSTIN
--- NOTE | 2020-07-25 10:18 | FL ---
EXAMINATION TYPE: FL guided pain mgmt statistic DATE OF EXAM: 07/25/2020 HISTORY: LUMBAR EPI STEROID INJ LUMBAR EPI STEROID INJ . 2 sec fl time. 1 pic on syn
[2020-07-25] MEDS ORDERED: IV FLUID CONTINUATION 700 ML IV ONE (10:19)
[2020-07-25 10:22] VITALS: RESP 16
[2020-07-25 10:38] VITALS: BP 121/79; PULSE 70
== END 2020-07-25 10:48 | disposition home or self-care (01) ==
LOC: ORPAIN 08:42
PROVIDERS: ATTEND Specialist
DX: M51.16 Intervertebral disc disorders with radiculopathy, lumbar region (principal); I49.3 Ventricular premature depolarization; Z88.8 Allergy status to other drugs, medicaments and biological substances; Z98.51 Tubal ligation status
CPT/HCPCS: 62323; J2250; J1030; J3010; Q9966

== ENCOUNTER 2020-08-13 11:54 | Day surgery (SDC) | payer OTHER ==
[2020-08-09 15:59] VITALS: BMI 29.0
[2020-08-13 12:06] VITALS: RESP 16; TEMP 97.9
[2020-08-13] MEDS ORDERED: IOPAMIDOL M200 10 ML VIAL ONE (12:19)
[2020-08-13] MEDS ORDERED: fentaNYL (PF) 50 MCG/ML 2 ML AMP ONE (12:19)
[2020-08-13] MEDS ORDERED: methylPREDNISolone ACETATE 40 MG/ML 1 ML VIAL ONE (12:19)
[2020-08-13] MEDS ORDERED: MIDAZOLAM 2 MG/2 ML VIAL ONE (12:19)
--- NOTE | 2020-08-13 12:22 | P.PCN ---
Date of Procedure: 08/13/20 Description of Procedure: PREOPERATIVE DIAGNOSIS: lumbar radiculopathy POSTOPERATIVE DIAGNOSIS: Lumbar radiculopathy PROCEDURE 1. Lumbar epidural steroid injection under fluoroscopic guidance at the L4-L5 level. 2. Lumbar epidurogram. Imaging: Fluoroscopy was used, images where saved to the medical record ANESTHESIA: Local with 1% lidocaine 5 ml and IV conscious sedation EBL: Minimal PROCEDURE INDICATION: The patient with low back pain and radiculitis symptoms unresponsive to conservative treatment. Fluoroscopy was used to optimize visualization of the needle placement and to maximize safety. PROCEDURE DESCRIPTION / TECHNIQUE: The patient was seen and identified in the preoperative area. Risks, benefits, complications including but not limited to infections ,bleeding ,allergic reaction to the medications, nerve damage and incomplete pain relief , as well as alternatives to the procedure were discussed with the patient. The patient agreed to proceed with the procedure and signed the consent. IV was started, and vital signs were stable. Patient was taken to the OR and time out was completed. The patient was placed in the prone position on procedure table and a pillow was placed under the abdomen to reduce lumbar lordosis. The lumbosacral area was prepped and draped in the usual sterile fashion. Vitals were closely monitored during the procedure. Using anterior-posterior fluoroscopy, the L4-L5 interlaminar space was identified and the skin over this site was marked and then infiltrated with 1% lidocaine subcutaneously. Subsequently, a 20-gauge Tuohy epidural needle was inserted and advanced toward the epidural space using the Loss of resistance technique and guided by AP and lateral fluoroscopy. The correct needle position in the epidural space was verified with the injection of 1 mL of Omnipaque 180 contrast to observe an acceptable epidurogram, after negative aspiration for blood and CSF and in the absence of paresthesias. Again after negative aspiration, a 3 ml mixture containing 40mg of depomedrol and 2 ml of preservative free Normal Saline was injected and a washout of epidurogram was seen. Needle was withdrawn intact, skin was cleansed, and bandages were applied. COMPLICATIONS: None DISPOSITION / PLANS: The patient was placed in a supine position and transferred to the recovery area in a stable condition for observation. There was no evidence of lower extremity motor or sensory deficit after the procedure. Patient was discharged from the recovery room after meeting discharge criteria. Home discharge instructions were given to the patient by the staff. The patient was reexamined prior to discharge. The patient will follow up as directed.
[2020-08-13] MEDS ORDERED: IV FLUID CONTINUATION 1,000 ML IV ONE (12:39)
[2020-08-13 12:50] VITALS: BP 115/80; PULSE 71
--- NOTE | 2020-08-13 13:05 | FL ---
EXAMINATION TYPE: FL guided pain mgmt statistic DATE OF EXAM: 08/13/2020 CLINICAL HISTORY: Low back pain. TECHNIQUE: Fluoroscopy. COMPARISON: None. FINDINGS: Fluoroscopic guidance was provided during pain relief procedure performed by Dr. Darby . A total of 12 seconds of fluoroscopic time was utilized during the procedure and two spot images ar e acquired. Images acquired shows needle localization at L4 level with contrast injection . IMPRESSION: As Above.
== END 2020-08-13 13:12 | disposition home or self-care (01) ==
LOC: ORPAIN 11:54
PROVIDERS: ATTEND Hospitalist
DX: M54.16 Radiculopathy, lumbar region (principal)
CPT/HCPCS: 62323; J2250; J1030; J3010; Q9966

== ENCOUNTER → 2020-09-11 | Outpatient (CLI) | payer OTHER ==
[2020-09-11 11:20] VITALS: BP 142/80; PULSE 38; RESP 16; TEMP 97.5
--- NOTE | 2020-09-11 11:43 | P.PN ---
Subjective Progress Note Date: 09/11/20 This is a 55 years old female with a history of chronic severe neck pain and she is diagnosed with cervical spondylosis, and she had chronic severe low back pain she is diagnosed with lumbar spondylosis with lumbar facet arthropathy without myelopathy, and lumbar bulging disc disease, and sacroiliitis, most recently we lumbar epidural steroid injection, she gets excellent pain relief currently she has minimal to 0 pain, use pain medication when necessary, he denies any motor or sensory deficit she denies any fever or night sweats and that is no change in the bowel movement or urination Physical Examinations : -Constitutiona : Cooperative , not in acute distress . -HEENT : nech : supple , no Lymphadenopathy , normal thyroid size . : eyes : no ptosis , no icterus, no photophobia . - neurologic : Cranial nerve II to XII intact , no focal neurological deffecit . -psychatric : alert , oriented X 3 , appropriate affect , intact judgment and insight . -Lymphatic : no Lymphadenopathy . - musculoskeltal : Cervical Spine motor stregnth in the deltoid and biceps, normal right side , normal Left side motor stregnth biceps and the wrist extensors normal right side ,normal left side . motor stregnth in the triceps muscle . normal Right side , normal Left side Lumber spine moter stegnth lower extremities ,thigh and legs 5/5 Right side , 5/5 Left side MRI of the lumbar spine L3 4 L4 5 bulging disc disease Assessment and plan=1-lumbar radiculopathy. 2-lumbar degenerative disc disease. 3-sacroiliitis. 4-cervical spondylosis with cervical facet arthropathy without myelopathy. Improvement after interventional pain management patient will follow up in the pain clinic when necessary - PQRS measures = - Patient's medications are documented in the chart. -Tobacco use is negative and counseling.Given. -Patient's has not received pneumococcal vaccine. -Advanced care planning discussed, patient not eligible. -Opiate contract not signed. -Pain positive and follow-up visit/procedure is scheduled. -Patient's blood pressure measured [ 142/80] , and documented in the record ,and patient will follow up with the primary care. -Patient's weight was measured and body mass index [ 29.7 ] above the normal limits and counseling was done. and patient instructed to follow-up with the primary care physician. -Patient was not identified as an unhealthy alcohol user Objective - Vital Signs Vital signs: Vital Signs Temp 97.5 F L 09/11/20 11:17 Pulse 38 L 09/11/20 11:17 Resp 16 09/11/20 11:17 BP 142/80 09/11/20 11:17 Pulse Ox 98 09/11/20 11:17
== END ==
LOC: PNWHC3 11:03
PROVIDERS: ATTEND Specialist
DX: M47.812 Spondylosis without myelopathy or radiculopathy, cervical region (principal); M51.16 Intervertebral disc disorders with radiculopathy, lumbar region; M46.1 Sacroiliitis, not elsewhere classified; Z88.8 Allergy status to other drugs, medicaments and biological substances; Z88.6 Allergy status to analgesic agent; Z87.891 Personal history of nicotine dependence
CPT/HCPCS: 99211

== ENCOUNTER → 2021-09-01 | Outpatient (CLI) | payer OTHER ==
--- NOTE | 2021-09-01 13:11 | BMR ---
EXAMINATION TYPE: MR breast BILAT wo/w con DATE OF EXAM: 09/01/2021 COMPARISON: None recently here or at outside institution. HISTORY: History of breast reduction, disorder of breast, unspecified per order. TECHNIQUE: A series of fat and water weighted images in the long and short axis views of both breasts are obtained in conjunction with dynamic contrast MRI with subtraction technique. The patient was i njected with 7 mL intravenous Gadavist gadolinium contrast. Three-dimensional and additional postpr ocessing imaging is created on independent workstation and reviewed during official interpretation of this study. FINDINGS: Scattered fibroglandular tissue bilaterally is identified. T2 and STIR weighted images show no significant focal fluid collection or cystic change in either breast. Benign-appearing bilateral axillary lymph nodes are seen. Dynamic postcontrast imaging shows mild symmetric background enhanceme nt. Delayed dynamic imaging shows no suspicious intramammary adenopathy bilaterally. There is no suspicious skin thickening seen bilaterally. No pathologic enhancement or enhancing cady s are identified in either breast. There is asymmetric focal increased tissue posterior left breast m edial aspect with areas of susceptibility artifact presumed related to prior surgical change without suspicious postcontrast enhancement. Chest wall is intact bilaterally. IMPRESSION: No MRI evidence for invasive malignancy in either breast. BI-RADS 2 benign findings both breasts. Recommendation: Annual bilateral breast mammogram is advised. Strongly Consider annual MRI surveillan ce in high risk patient.
== END | disposition home or self-care (01) ==
LOC: RADMRIMAIN 10:23
PROVIDERS: ATTEND Physician Assistant Medical
DX: N64.9 Disorder of breast, unspecified (principal)
CPT/HCPCS: 77049; C8937; A9585

== ENCOUNTER → 2024-01-06 | Outpatient (CLI) | payer OTHER ==
--- NOTE | 2024-01-07 09:59 | BMR ---
EXAM DATE: 01/06/2024 EXAM DESCRIPTION: MRI-Breast Bilat (W/WO Contrast) INDICATION: High-risk screening. Prior history of breast reduction. COMPARISON: Prior breast MRI dated 09/01/2021 CONTRAST: Ten cc Gadavist contrast material. TECHNIQUE: Multi sequence multiplanar MR imaging of the breasts was obtained. Subsequently, after the uneventful intravenous administration of Gadavist contrast material, 6 dynamic sequences were then obtained. Post processing was performed utilizing a [employer] CAD workstation. FINDINGS: The breasts are composed of scattered fibroglandular tissue. There is mild background parenchymal enhancement identified. Lymph nodes with benign morphology are stable in the axillary region. A benign- appearing intramammary lymph node is stable in the superior portion of right anterior breast since 09/01/2021. No axillary or internal mammary lymphadenopathy. No focal skin thickening or nipple retraction. The bone marrow signal intensity is unremarkable. T2 weighted images demonstrated no dominant cystic lesion in either breast. Post contrast images demonstrated no abnormal enhancement in either breast to suggest malignancy. Stable changes of bilateral breast reduction. There is no abnormal signal or enhancement in the chest wall or subcutaneous tissue. IMPRESSION: 1. No MR evidence of malignancy in either breast. 2. No axillary or internal mammary lymphadenopathy. Final assessment: BI-RADS category 2: Benign findings MTDD
== END | disposition home or self-care (01) ==
LOC: RADMRIMAIN 09:35
PROVIDERS: ATTEND Family Medicine
DX: Z12.39 Encounter for other screening for malignant neoplasm of breast (principal)
CPT/HCPCS: 77049